=== PATIENT | female | born 1995 | race Caucasian/White ===

== ENCOUNTER 2018-07-04 17:23 | Emergency (ER) | payer BC, SELFPAY ==
[2018-07-04 17:24] VITALS: BP 156/84; PULSE 78; RESP 20; TEMP 36.3; O2SAT 96; BMI 34.0
--- NOTE | 2018-07-04 18:00 | CT_ITS ---
STUDY: CT ABDOMEN AND PELVIS WITHOUT CONTRAST REASON FOR EXAM: Female, 22 years old. Right flank pain RADIATION DOSAGE (If Supplied By Facility): CTDIvol = ( 20.73 ) mGy, DLP = ( 1087.54 ) mGycm TECHNIQUE: Transaxial images were obtained from the dome of the diaphragm to the symphysis pubis without oral contrast, and without intravenous contrast. Sagittal and coronal images were reconstructed. Individualized dose optimization techniques were used for this CT. COMPARISON: None. FINDINGS: The visualized lung bases are unremarkable. The visualized portions of the heart are within normal limits. Normal liver. There are gallstones noted without wall thickening or pericholecystic fluid. Normal spleen. Normal pancreas. Normal bilateral adrenal glands. Normal left kidney. Right kidney shows mild right hydronephrosis and hydroureter. Findings are due to a 2 mm stone noted in the distal right ureter on axial image 156, and coronal recon image 73. Normal visualized stomach. Normal small intestine. Normal colon. The appendix is visualized and appears normal. Appendix best seen on coronal recon image 54 Normal abdominal aorta. Normal inferior vena cava. Normal retroperitoneum. Normal urinary bladder. Normal-appearing uterus, there is a 4 cm right ovarian cyst, and a 2.5 cm left ovarian cyst. Normal abdominal wall. Normal osseous structures. CT/Abdomen/Pelvis without Cont IMPRESSION: 2 mm stone in the distal right ureter causing hydronephrosis and hydroureter. No significant inflammatory stranding noted. Cholelithiasis Ovarian cysts Electronically Signed: Srinivasan Lyons MD at 20:39 EST , Service support ,
[2018-07-04] MEDS: Ketorolac 30 MG/ML Syringe IV (18:21)
[2018-07-04] MEDS: 0.9% Normal Saline 1,000 ML 150 ML IV (18:21)
[2018-07-04] MEDS: Morphine 4 MG/ML Syringe IV (18:21)
[2018-07-04] MEDS: Ondansetron 4 MG/2 ML Vial IV (18:21)
[2018-07-04 18:51] LABS: Anion Gap 9 (5-15); BUN 16 mg/dL (7-18); BUN/Creat Ratio 18.9 RATIO (10-20); Calcium,Total 9.1 mg/dL (8.5-10.1); Chloride 104 mmol/L (98-107); Creatinine, Serum 0.85 mg/dL (0.55-1.02); EST Glomerular Filtration Rate 88 mL/min (>60); Est Glom Filt Rate - Afr Amer 106 mL/min (>60); Estimated Creatinine Clearance 107.57 ml/min; Glucose 115 mg/dL (74-106); Potassium 3.2 mmol/L (3.5-5.1); Sodium Level 139 mmol/L (136-145)
[2018-07-04 18:58] LABS: Absolute Lymphocyte Count 1.26 X10^3/ul (0.83-4.51); Absolute Neutrophil Count 6.9 X10^3/uL (2.0-7.7); Basophil# 0.01 X10^3/uL; Basophil% 0.1 % (0-1); Eosinophil# 0.02 X10^3/uL; Eosinophils% 0.2 % (0-5); Hemoglobin 13.2 g/dl (12.0-15.0); Lymphocyte # 1.26 X10^3/ul (4.0); Lymphocyte % 14.2 % (19-41); Mean Corp Hgb Conc 33.8 g/gl (32-36); Mean Corpuscular Hgb 29.9 pg (27.0-32.0); Mean Corpuscular Volume 88.4 fL (81-99); Mean Platelet Vol. 10.7 fl (6.2-12.0); Monocyte# 0.68 X10^3/uL; Monocyte% 7.7 % (0-10); Neutrophil # 6.87 X10^3/uL (2.7-7.7); Neutrophil % 77.7 % (47-70); POSITIVE COUNT NO; POSITIVE DIFFERENTIAL NO; POSITIVE MORPHOLOGY NO; Platelet Count 209 K/mm3 (150-450); RBC Distribution Width CV 12.1 % (11.6-14.6); Red Blood Count 4.41 M/mm3 (4.2-5.4); White Blood Count 8.9 K/mm3 (4.4-11.0)
[2018-07-04 19:33] LABS: Pregnancy, Serum, hCG Quali. NEGATIVE Negative (0-9 Nonpreg)
[2018-07-04 20:03] VITALS: BP 157/103; PULSE 94; RESP 16; O2SAT 99
[2018-07-04 20:27] LABS: AST(SGOT) 12 U/L (15-37); Alanine Aminotransfer ALT/SGPT 20 U/L (13-56); Albumin, Serum 4.2 g/dL (3.2-5.0); Alkaline Phosphatase 72 U/L (45-117); Globulin 3.7 g/dL (2.2-4.2); Protein, Total 7.9 g/dL (6.4-8.2)
[2018-07-04 20:37] LABS: Bacteria 0 SEEN /hpf (None Seen); Mucous, Urine 0 SEEN /hpf (<or=2+)
--- NOTE | 2018-07-04 21:06 | ED.DCSUM_ITS ---
- ER Visit Summary Date of Service: 07/04/18 Chief Complaint: [Abdominal pain/right flank pain] History of Present Illness: The patient is a 22 F [presents to the emergency department with sudden onset of pain that started about an hour ago. Patient rates her pain a 7 out of 10. Patient had nausea and vomiting with this x3. Patient denies any diarrhea. She denies any blood in her stool or black tarry stool. She denies any urinary symptoms such as urgency, frequency, or hematuria. Patient's not had pain like this before. Patient does not believe that she is . Patient's last menstrual period was 1 week ago.] Physical Examination: [HEENT-PERRLA, EOMI. Cranial nerves II through XII grossly intact. TMs clear. Mucous membranes moist. No adenopathy. Cardiovascular-regular rate and rhythm without murmur or ectopy Lungs-clear to auscultation, chest wall stable without crepitus or subcu emphysema Abdomen-normoactive bowel sounds, soft. Patient does have some minimal tenderness over the right lower quadrant. She has CVA tenderness on the right. Patient has a negative Pop sign. There is no rebound, rigidity, or perineal signs. Extremities-intact ?4, normal range of motion, normal pulses, atraumatic] Test Results: CBC with differential obtained showed a white count of 8.9, hemoglobin 13, hematocrit 39, placed 209. Chemistries unremarkable other than a slightly depressed potassium of 3.2 for which I did give her 40 mEq of potassium chloride p.o. HCG was negative. CT flank obtained showed a 2 mm stone distal right ureter with hydronephrosis and hydroureter. Patient also noted to have cholelithiasis. Urinalysis was unremarkable.] Emergency Department Course and Treatment: [Patient was medicated with Toradol, morphine, and Zofran. Patient's pain resolved.] Treatment Plan: [Patient will be dispensed urine strainers as well as a prescription for Zofran and [place]. Patient will be referred to urology for follow-up.] Disposition: [Discharged home in stable condition] Impression: [Right-urolithiasis Cholelithiasis-asymptomatic] This note was generated with [employer] dictation software. It may contain incorrect words, spelling, and punctuation that were not noted in review of the chart prior to signing ED Disposition - Plan for ED Patient: Chief Complaint: Abd Pain Referrals: Evette Albarado DO [Primary Care Provider] -
--- NOTE | 2018-07-04 21:08 | DCINST.ED_ITS ---
ED Disposition - Plan for ED Patient: Chief Complaint: Abd Pain Instructions: ED Stone Renal W Colic Prescriptions: Hydrocodone Bitart/Apap 5-325 [[place] 5MG-325MG] 1 tab PO Q4H PRN PRN 2 Days #14 tab PRN Reason: Pain Ondansetron [Zofran Odt] 4 mg PO Q8H PRN PRN #10 tab PRN Reason: Nausea Referrals: Evette Albarado DO [Primary Care Provider] - Zachariah Cannon MD [STAFF PHYSICIAN] - As Needed
[2018-07-04 21:18] LABS: Color, Urine Yellow (Yellow); Glucose, Dipstick Normal (Normal); Leukocyte Esterase-Dipstick 25 /ul (Negative); Nitrite-Dipstick Negative (Negative); Occult Blood-Urine 150 /ul (Negative); Protein-Dipstick Negative (Negative); Specific Gravity, Urine 1.015 (1.002-1.030); Urine Bilirubin Dipstick Negative (Negative); Urine Clarity Clear (Clear); Urine Urobilinogen Normal (Normal)
[2018-07-04 21:30] LABS: Ketone-Dipstick 150 mg/dl (Negative)
[2018-07-04 21:32] LABS: Red Blood Cells-Urine 0-5 SEEN /hpf (0-5); Squamous Epithelial Cells - UA 0-5 SEEN /hpf (5-10); White Blood Cells 0-5 SEEN /hpf (0-5)
== END 2018-07-04 21:56 | disposition home or self-care (01) ==
LOC: ED 18:10
PROVIDERS: Emergency Provider Emergency Medicine; Family Provider Internal Medicine; PCP Internal Medicine
DX: N13.2 Hydronephrosis with renal and ureteral calculous obstruction (principal); K80.20 Calculus of gallbladder without cholecystitis without obstruction; E87.6 Hypokalemia; Z79.899 Other long term (current) drug therapy
CPT/HCPCS: 74176; 80048; 80076; 81001; 84703; 85025; 96361; 96374; 96375; 99283; J7030; A4216; J2405

== ENCOUNTER 2018-07-06 07:39 | Emergency (ER) | payer BC, SELFPAY ==
[2018-07-06 07:40] VITALS: BP 144/91; PULSE 66; RESP 18; TEMP 36.1; O2SAT 100; BMI 34.0
[2018-07-06] MEDS: Ondansetron 4 MG/2 ML Vial IV (08:07)
[2018-07-06] MEDS: Ketorolac 30 MG/ML Syringe IV (08:07)
[2018-07-06] MEDS: 0.9% Normal Saline 1,000 ML 999 ML IV (08:07)
[2018-07-06] MEDS: Morphine 4 MG/ML Syringe IV (09:20)
--- NOTE | 2018-07-06 09:38 | ED.DCSUM_ITS ---
- ER Visit Summary Date of Service: 07/06/18 Chief Complaint: Flank pain History of Present Illness: The patient is a 22 F with flank pain for several days. She was seen in this ED and diagnosed with a right side 2 mm kidney stone. She was prescribed Zofran and [place] and referred to urology for follow-up. She presents today for increasing pain and nausea with vomiting. She took her Zofran ODT by mouth and then vomited it up today. No fevers or other new symptoms. Physical Examination: Afebrile and vital signs unremarkable. Right flank tenderness. Abdomen soft. Skin normal. Test Results: None performed Emergency Department Course and Treatment: Patient was treated with IV fluids, Zofran, and Toradol. She did have some improvement of her pain but required additional morphine. On reevaluation, her pain is 3 out of 10. I advised her that she will not be pain-free and that kidney stones can be very painful. She was educated about proper use of Zofran and would like to follow-up with urology. Patient will be discharged. Return for any new or worsening issues. Treatment Plan: As above Disposition: Discharge Impression: 1. Ureteral colic This note was generated with [employer] dictation software. It may contain incorrect words, spelling, and punctuation that were not noted in review of the chart prior to signing ED Disposition - Plan for ED Patient: Chief Complaint: Flank Pain Referrals: Evette Albarado DO [Primary Care Provider] -
--- NOTE | 2018-07-06 09:38 | ED.DEP ---
ED Disposition - Plan for ED Patient: Chief Complaint: Flank Pain Instructions: ED Stone Renal W Colic Referrals: Zachariah Cannon MD [STAFF PHYSICIAN] -
[2018-07-06 09:53] VITALS: BP 117/62; PULSE 76; RESP 15; O2SAT 98
== END 2018-07-06 09:55 | disposition home or self-care (01) ==
LOC: ED 07:57
PROVIDERS: Emergency Provider Emergency Medicine; Family Provider Internal Medicine; PCP Internal Medicine
DX: N20.0 Calculus of kidney (principal)
CPT/HCPCS: 96361; 96374; 96375; 99284; J7030; A4216; J2405

== ENCOUNTER 2018-07-14 12:17 | Day surgery (SDC) | payer BC, SELFPAY ==
[2018-07-14 12:44] VITALS: BP 129/76; PULSE 72; RESP 14; TEMP 37.2; O2SAT 99; BMI 36.2
[2018-07-14 13:07] LABS: Partial Thromboplast Time 29.8 Seconds (24.1-36.2)
[2018-07-14 13:10] LABS: AST(SGOT) 11 U/L (15-37); Alanine Aminotransfer ALT/SGPT 23 U/L (13-56); Albumin, Serum 4.1 g/dL (3.2-5.0); Alkaline Phosphatase 66 U/L (45-117); Bilirubin, Direct 0.14 mg/dL (0.00-0.30); Globulin 3.6 g/dL (2.2-4.2); Protein, Total 7.7 g/dL (6.4-8.2)
[2018-07-14 13:13] LABS: Internal QC Validated? YES +Cl - CLEAR BKGD; Pregnancy, Urine Negative Negative
[2018-07-14] MEDS: Cefazolin 2 GM in 0.9% Normal Saline 100 ML IV (15:48)
--- NOTE | 2018-07-14 16:14 | DCINST_ITS ---
Discharge Diet: Light diet - advance as tolerated Discharge Activity: Return to Normal Activity Call your doctor if you observe: Fever of 101 or Higher Allergies/Adverse Reactions: Allergies No Known Allergies Allergy (Verified 07/13/18 15:09) Medications to take at Discharge Ondansetron [Zofran Odt] 4 mg PO Q8H PRN PRN #10 tab 07/04/18 Oxcarbazepine 300 mg PO DAILY 07/04/18 Quetiapine Fumarate 50 mg PO DAILY 07/04/18 Hydrocodone/Acetaminophen [Hydrocodon-Acetaminophen 5-325] 1 each PO Q6H PRN PRN 07/13/18 Oxcarbazepine [Trileptal] 600 mg PO QHS 07/13/18 Primary Care Physician: Evette Albarado DO [Primary Care Provider] - Test Results: Test results from this visit will be discussed in further detail at your follow- up appointment, if applicable. Please Follow Up With: Zachariah Cannon MD When: in 2 weeks, please call to make an appointment.
--- NOTE | 2018-07-14 16:17 | OP.PCM_ITS ---
Report of Operation Date of Procedure: 07/14/18 Pre-Operative Diagnosis: Right ureteral calculi Post-Operative Diagnosis: The same and scarred down right ureter Surgery/Procedure Performed:: Cystoscopy balloon dilation of the right ureter, right ureteroscopy, and right stent placement Description of Surgical Findings:: 22-year-old female who I saw in the office she had a kidney stone on the right side had a CAT scan done to demonstrate a very small stone in the distal right ureter however she claims that she has not seen a stone yet and that she still having a lot of pain off and on in the right side so because of this we talked about the options of repeating the CAT scan or proceeding with ureteroscopy and extraction of the stone if it still there we decided going to proceed with surgery. 22-year-old female taken back to the operating room at the smooth induction of general anesthesia she was placed supine on the table in the dorsolithotomy position the urethra vaginal area prepped and draped in usual sterile fashion went to the bladder with a 21 Spanish rigid cystourethroscope entire urethra was normal the bladder was normal trigones normal I then went in with a semirigid 7.9 Spanish ureteroscope was able to get in the distal right ureter and then immediately found stenotic scar in the distal right ureter right proximal to the ureteral orifice so because of this and then out took out the ureteroscope I did not try to go to the scar I then went in with a cystoscope up with a wire up the right ureter and then over the wire advanced the balloon dilator and balloon dilated the distal right ureter and after balloon dilating the rest of the ureter left the wire in place next the wire went in with the semirigid ureteroscope was able to get into into the ureter I went up as high as possible and I thought I saw a tiny little fragment I got flicked up into the kidney however decided not to darius it I think there was good be passed on its own the problem was that there was a scar tissue in the distal ureter that is keeping the stone from passing there is been balloon dilated I decided to leave a stent so worked my way down the ureter with the ureteroscope left the wire in place over the wire I advanced a stent 6 Spanish by 24 cm stent left the stent on with a string for extraction plan is to see her back in about 2 weeks to get the stent out this allow the ureter to dilate the stricture to open up and heal open and then she should be able to pass any fragments that are left up in the kidney patient bladder was drained and anesthesia was reversed and she was taken back to PACU good condition. Type of Anesthesia:: General Drains: STENT - Admit VTE Documentation VTE Present on Admission: No VTE Mechan Device Prophylaxis: SCD's
[2018-07-14 16:19] VITALS: BP 129/76; BP 155/86; PULSE 96; RESP 18; TEMP 36.4; O2SAT 96
[2018-07-14 16:30] VITALS: BP 129/76; BP 146/90; PULSE 69; RESP 16; O2SAT 96
[2018-07-14 16:34] VITALS: BP 129/76; BP 138/84; PULSE 71; RESP 16; TEMP 36.8; O2SAT 97
[2018-07-14] MEDS: Acetaminophen 325 MG Tablet 650 MG PO (16:53)
[2018-07-14 18:13] VITALS: BP 128/78; BP 129/76; PULSE 55; RESP 18; TEMP 36.8; O2SAT 99
--- OUTSIDE RECORDS SUMMARY | 2018-09-18 01:38 | XMS RPT_ITS ---
:1995 Author Organization OHIP Care Team Providers Name Role Phone Evette Albarado Primary Care Unavailable Ungur, Remus Attending Unavailable Per Evette Primary Care Unavailable Tomas Lyons Attending Unavailable Zachariah Cannon Attending Unavailable Zachariah Cannon Referring Unavailable Per Evette Primary Care Unavailable Dr. Ortega Gibbs Admitting Unavailable Dr. Ortega Gibbs Attending Unavailable Dr. Loly Mariee Primary Care Unavailable PROBLEMS PROBLEMS DATE TYPE CONDITION / CODE ATTENDING STATUS SOURCE 07/04/2018 Unknown N20.0 - Calculus Ungur, Remus Active [facility] kidney / Community N20.0(ICD-10) Hospital Repository PROCEDURES PROCEDURES No Procedure Records FoundRESULTS RESULTS OPERATIVE REPORT Observed: 07/14/2018 Status: F Source: [place] 4:17 PM [facility] REPOSITORY [facility] Medical Records Department [address] [place] [address] Operative Report 07/14/18 1614 MR#: [id number] Acct: [id number] Name: LUAN PEREZ Rep #: [id number] : 1995 22 From: Zachariah Cannon MD PCP: Evette Albarado DO Status: REG [facility] Location: [place] [address] Report of Operation Date of Procedure: 07/14/18 Pre-Operative Diagnosis: Right ureteral calculi Post-Operative Diagnosis: The same and scarred down right ureter Surgery/Procedure Performed:: Cystoscopy balloon dilation of the right ureter, right ureteroscopy, and right stent placement Description of Surgical Findings:: 22-year-old female who I saw in the office she had a kidney stone on the right side had a CAT scan done to demonstrate a very small stone in the distal right ureter however she claims that she has not seen a stone yet and that she still having a lot of pain off and on in the right side so because of this we talked about the options of repeating the CAT scan or proceeding with ureteroscopy and extraction of the stone if it still there we decided going to proceed with surgery. 22-year-old female taken back to the operating room at the smooth induction of general anesthesia she was placed supine on the table in the dorsolithotomy position the urethra vaginal area prepped and draped in usual sterile fashion went to the bladder with a 21 Mexican rigid cystourethroscope entire urethra was normal the bladder was normal trigones normal I then went in with a semirigid 7.9 Mexican ureteroscope was able to get in the distal right ureter and then immediately found stenotic scar in the distal right ureter right proximal to the ureteral orifice so because of this and then out took out the ureteroscope I did not try to go to the scar I then went in with a cystoscope up with a wire up the right ureter and then over the wire advanced the balloon dilator and balloon dilated the distal right ureter and after balloon dilating the rest of the ureter left the wire in place next the wire went in with the semirigid ureteroscope was able to get into into the ureter I went up as high as possible and I thought I saw a tiny little fragment I got flicked up into the kidney however decided not to darius it I think there was good be passed on its own the problem was that there was a scar tissue in the distal ureter that is keeping the stone from passing there is been balloon dilated I decided to leave a stent so worked my way down the ureter with the ureteroscope left the wire in place over the wire I advanced a stent 6 Mexican by 24 cm stent left the stent on with a string for extraction plan is to see her back in about 2 weeks to get the stent out this allow the ureter to dilate the stricture to open up and heal open and then she should be able to pass any fragments that are left up in the kidney patient bladder was drained and anesthesia was reversed and she was taken back to PACU good condition. Type of Anesthesia:: General Drains: STENT - Admit VTE Documentation VTE Present on Admission: No VTE Mechan Device Prophylaxis: SCD's 07/14/187 <Electronically signed by Zachariah Cannon MD> Date Zachariah Cannon MD CC: Zachariah Cannon MD; Evette Albarado DO Signed DISCHARGE INSTRUCTION Observed: 07/14/2018 Status: F Source: [place] 4:14 PM [facility] REPOSITORY [facility] Medical Records Department [address] [place] [address] Instructions for Home/Discharge Instructions 07/14/18 1613 MR#: [id number] Acct: [id number] Name: LUAN PEREZ Rep #: [id number] : 1995 22 From: Zachariah Cannon MD PCP: Evette Albarado DO Status: REG [facility] Dis[facility] Diet: Light diet - advance as tolerated Discharge Activity: Return to Normal Activity Call your doctor if you observe: Fever of 101 or Higher Allergies/Adverse Reactions: Allergies No Known Allergies Allergy (Verified 07/13/18 15:09) Medications to take at Discharge Ondansetron [Zofran Odt] 4 mg PO Q8H PRN PRN #10 tab 07/04/18 Oxcarbazepine 300 mg PO DAILY 07/04/18 Quetiapine Fumarate 50 mg PO DAILY 07/04/18 Hydrocodone/Acetaminophen [Hydrocodon-Acetaminophen 5-325] 1 each PO Q6H PRN PRN 07/13/18 Oxcarbazepine [Trileptal] 600 mg PO QHS 07/13/18 Primary Care Physician: Evette Albarado DO [Primary Care Provider] - Test Results: Test results from this visit will be discussed in further detail at your follow-up appointment, if applicable. Please Follow Up With: Zachariah Cannon MD When: in 2 weeks, please call to make an appointment. 07/14/18 1614 <Electronically signed by Zachariah Cannon MD> Date Zachariah Cannon MD CC: Evette Albarado DO Signed ,URINE Collected: 07/14/2018 Status: F Source: [place] 1:07 PM [facility] REPOSITORY Order Comment: Reason for Laboratory Test PREOP TYPE CODE TESTS RESULT OUT OF REFERENCE UNITS RANGE LAB L400.8000 Negative Normal HCGUQUAL Negative Result Comment: Very dilute urine specimens, as indicated by a low specific gravity, may not contain insurance follow up representative levels of hCG. If is still suspected, a first morning urine specimen should be collected 48 hours later and tested. Performed By: #### L400.7600 #### [facility] [place], [address] LIVER PROFILE Collected: 07/14/2018 Status: F Source: [place] 12:30 PM [facility] REPOSITORY TYPE CODE TESTS RESULT OUT OF RANGE REFERENCE UNITS LAB L501.1500 6.4-8.2 g/dL Normal T PROT 7.7 LAB L501.1800 3.2-5.0 g/dL Normal ALB 4.1 LAB L501.1950 2.2-4.2 g/dL Normal GLOB 3.6 LAB L501.4100 15-37 U/L Low AST 11 LAB L501.4305 45-117 U/L Normal ALK P 66 LAB L501.4405 13-56 U/L Normal ALT 23 LAB L501.4600 0.20-1.00 mg/dL Normal T BILI 0.40 LAB L501.4700 0.00-0.30 mg/dL Normal D BILI 0.14 Performed By: #### L500.3400, L300.4310 #### [facility] [address] [place], [address] PARTIAL THROMBOPLAST Collected: 07/14/2018 Status: F Source: [place] TIME 12:30 PM [facility] REPOSITORY TYPE CODE TESTS RESULT OUT OF RANGE REFERENCE UNITS LAB L300.4310 24.1-36.2 Seconds Normal PTT 29.8 Performed By: #### L500.3400, L300.4310 #### [facility] [address] [facility] [place], [address] DISCHARGE INSTRUCTION Observed: 07/06/2018 Status: F Source: [place] 4:15 PM [facility] REPOSITORY [facility] Medical Records Department [address] [place] [address] Discharge Instruction 07/06/18 0938 MR#: [id number] Acct: [id number] Name: LUAN PEREZ Rep #: [id number] : 1995 22 From: Tomas Lyons MD PCP: Evette Albarado DO Status: DEP ER ED Disposition - Plan for ED Patient: Chief Complaint: Flank Pain Instructions: ED Stone Renal W Colic Referrals: Zachariah Cannon MD [STAFF PHYSICIAN] - What to do if you have Problems For any increased pain, shortness of breath, bleeding, nausea or vomiting, chest pain, or any unexpected problems, contact your Primary Care Provider. Call [facility] ([phone]) or report to the closest Emergency Room. Call 911 if necessary. 07/06/18 3190 <Electronically signed by Tomas Lyons MD> Date Tomas Lyons MD Cosigner Signature (If Indicated): Date CC: Evette Albarado DO EMERGENCY DEPARTMENT Observed: 07/06/2018 Status: F Source: [place] SUMMARY 4:15 PM [facility] REPOSITORY [facility] Medical Records Department [address] [place] [address] Emergency Department Summary 07/06/18 0935 MR#: [id number] Acct: [id number] Name: LUAN PEREZ Rep #: [id number] : 1995 22 From: Tomas Lyons MD PCP: Evette Albarado DO Status: DEP ER - ER Visit Summary Date of Service: 07/06/18 Chief Complaint: Flank pain History of Present Illness: The patient is a 22 F with flank pain for several days. She was seen in this ED and diagnosed with a right side 2 mm kidney stone. She was prescribed Zofran and [place] and referred to urology for follow-up. She presents today for increasing pain and nausea with vomiting. She took her Zofran ODT by mouth and then vomited it up today. No fevers or other new symptoms. Physical Examination: Afebrile and vital signs unremarkable. Right flank tenderness. Abdomen soft. Skin normal. Test Results: None performed Emergency Department Course and Treatment: Patient was treated with IV fluids, Zofran, and Toradol. She did have some improvement of her pain but required additional morphine. On reevaluation, her pain is 3 out of 10. I advised her that she will not be pain-free and that kidney stones can be very painful. She was educated about proper use of Zofran and would like to follow-up with urology. Patient will be discharged. Return for any new or worsening issues. Treatment Plan: As above Disposition: Discharge Impression: 1. Ureteral colic This note was generated with letsmote.comation software. It may contain incorrect words, spelling, and punctuation that were not noted in review of the chart prior to signing ED Disposition - Plan for ED Patient: Chief Complaint: Flank Pain Referrals: Evette Albarado DO [Primary Care Provider] - What to do if you have Problems For any increased pain, shortness of breath, bleeding, nausea or vomiting, chest pain, or any unexpected problems, contact your Primary Care Provider. Call [facility] ([phone]) or report to the closest Emergency Room. Call 911 if necessary. 07/06/18 1615 <Electronically signed by Tomas Lyons MD> Date Tomas Lyons MD Cosigner Signature (If Indicated): Date CC: Evette Albarado DO DISCHARGE INSTRUCTION Observed: 07/04/2018 Status: F Source: [place] 9:08 PM [facility] REPOSITORY [facility] Medical Records Department [address] [place] [address] Discharge Instruction 07/04/182106 MR#: [id number] Acct: [id number] Name: LUAN PEREZ Rep #: [id number] : 1995 22 From: Paul Tilley DO PCP: Evette Albarado DO Status: REG ER ED Disposition - Plan for ED Patient: Chief Complaint: Abd Pain Instructions: ED Stone Renal W Colic Prescriptions: Hydrocodone Bitart/Apap 5-325 [Houston 5MG-325MG] 1 tab PO Q4H PRN PRN 2 Days #14 tab PRN Reason: Pain Ondansetron [Zofran Odt] 4 mg PO Q8H PRN PRN #10 tab PRN Reason: Nausea Referrals: Evette Albarado DO [Primary Care Provider] - Zachariah Cannon MD [STAFF PHYSICIAN] - As Needed What to do if you have Problems For any increased pain, shortness of breath, bleeding, nausea or vomiting, chest pain, or any unexpected problems, contact your Primary Care Provider. Call [facility] ([phone]) or report to the closest Emergency Room. Call 911 if necessary. 07/04/182107 <Electronically signed by Paul Tilley DO> Date Paul Tilley DO Cosigner Signature (If Indicated): Date CC: Evette Albarado DO EMERGENCY DEPARTMENT Observed: 07/04/2018 Status: F Source: [place] SUMMARY 9:06 PM [facility] REPOSITORY [facility] Medical Records Department [address] [place] [address] Emergency Department Summary 07/04/182102 MR#: [id number] Acct: [id number] Name: LUAN PEREZ Rep #: [id number] : 1995 22 From: Paul Tilley DO PCP: Evette Albarado DO Status: REG ER - ER Visit Summary Date of Service: 07/04/18 Chief Complaint: [Abdominal pain/right flank pain] History of Present Illness: The patient is a 22 F [presents to the emergency department with sudden onset of pain that started about an hour ago. Patient rates her pain a 7 out of 10. Patient had nausea and vomiting with this x3. Patient denies any diarrhea. She denies any blood in her stool or black tarry stool. She denies any urinary symptoms such as urgency, frequency, or hematuria. Patient's not had pain like this before. Patient does not believe that she is . Patient's last menstrual period was 1 week ago.] Physical Examination: [HEENT-PERRLA, EOMI. Cranial nerves II through XII grossly intact. TMs clear. Mucous membranes moist. No adenopathy. Cardiovascular-regular rate and rhythm without murmur or ectopy Lungs-clear to auscultation, chest wall stable without crepitus or subcu emphysema Abdomen-normoactive bowel sounds, soft. Patient does have some minimal tenderness over the right lower quadrant. She has CVA tenderness on the right. Patient has a negative Pop sign. There is no rebound, rigidity, or perineal signs. Extremities-intact 4, normal range of motion, normal pulses, atraumatic] Test Results: CBC with differential obtained showed a white count of 8.9, hemoglobin 13, hematocrit 39, placed 209. Chemistries unremarkable other than a slightly depressed potassium of 3.2 for which I did give her 40 mEq of potassium chloride p.o. HCG was negative. CT flank obtained showed a 2 mm stone distal right ureter with hydronephrosis and hydroureter. Patient also noted to have cholelithiasis. Urinalysis was unremarkable.] Emergency Department Course and Treatment: [Patient was medicated with Toradol, morphine, and Zofran. Patient's pain resolved.] Treatment Plan: [Patient will be dispensed urine strainers as well as a prescription for Zofran and [place]. Patient will be referred to urology for follow-up.] Disposition: [Discharged home in stable condition] Impression: [Right-urolithiasis Cholelithiasis-asymptomatic] This note was generated with Pro.com dictation software. It may contain incorrect words, spelling, and punctuation that were not noted in review of the chart prior to signing ED Disposition - Plan for ED Patient: Chief Complaint: Abd Pain Referrals: Evette Albarado DO [Primary Care Provider] - What to do if you have Problems For any increased pain, shortness of breath, bleeding, nausea or vomiting, chest pain, or any unexpected problems, contact your Primary Care Provider. Call [facility] ([phone]) or report to the closest Emergency Room. Call 911 if necessary. 07/04/18 6277 <Electronically signed by Paul Tilley DO> Date Paul Tilley DO Cosigner Signature (If Indicated): Date CC: Evette Albarado DO URINALYSIS, COMPLETE Collected: 07/04/2018 Status: F Source[facility] [place] [facility] Order Comment: Order Date: 07/04/18 How was Urine Obtained? CLEAN CATCH TYPE CODE TESTS RESULT OUT OF RANGE REFERENCE UNITS LAB L400.3000 Yellow COLOR Normal Yellow LAB L400.3050 Clear Normal CLARITY Clear LAB L400.3200 Normal mg/dl Normal GLUCOSE, UR Normal LAB L400.3300 Negative mg/dL Normal BILIRUBIN URINE Negative LAB L400.3400 Negative mg/dl High KETONE UR 150 Result Comment: CRITICAL VALUE *H CRITICAL VALUE VERIFIED. CALLED TO DR CHOI 07/04/18 4353 Stephanie Alamo. RESULTS READ BACK BY SAME . LAB L400.3465 1.002-1.030 Normal SP.GR. DIPSTX 1.015 LAB L400.3550 5.0 - 8.0 pH Normal UR 6.0 LAB L400.3600 Negative mg/dl Normal PROT DIPSTX Negative LAB L400.3700 Normal mg/dl Normal UROBILI Normal LAB L400.3750 Negative Normal NITRITE UR Negative LAB L400.3780 Negative /ul High OCCULT 150 BLOOD-UR LAB L400.3800 Negative /ul High 25 LEUK ESTERASE LAB L400.4050 0-5 /hpf Normal WBC 0-5 SEEN LAB L400.4100 0-5 /hpf Normal RBC-UA 0-5 SEEN LAB L400.4150 5-10 /hpf Normal SQUAM EPI 0-5 SEEN LAB L400.4300 None Seen /hpf 0 Normal BACTERIA SEEN LAB L400.4350 <or=2+ /hpf 0 Normal MUCUS, URINE SEEN Performed By: #### L400.0001 #### [facility] [address] [place], [place], [address] BASIC METABOLIC Collected: 07/04/2018 Status: F Source: [place] PROFILE (BMP) 6:20 PM [facility] REPOSITORY TYPE CODE TESTS RESULT OUT OF RANGE REFERENCE UNITS LAB L501.0100 74-106 mg/dL High GLU 115 Result Comment: Fasting Glucose result from 100 to 125 mg/dL suggests IMPAIRED HOMEOSTASIS per A.D.A. criteria. Please note revised GLUCOSE reference range effective 2017. LAB L501.1000 7-18 mg/dL Normal BUN 16 LAB L501.1100 0.55-1.02 mg/dL Normal CREAT,SERUM 0.85 Result Comment: The validity of the calculated GFR AND GFRAA in patients over 70 years has not been determined. Clinical correlation is essential. LAB L501.1110 >60 mL/min Normal EST GFR 88 Result Comment: Non- GFR Calc LAB L501.1115 >60 mL/min Normal EST GFR - AA 106 Result Comment: GFR Calc LAB L501.1255 ml/min Normal Estimated CRCL 107.57 LAB L501.1300 10-20 RATIO BUN/CRE Normal 18.9 LAB L501.2200 8.5-10 mg/dL .1 CA Normal 9.1 LAB L501.5300 136-14 mmol/L 5 NA Normal 139 LAB L501.5600 3.5-5. mmol/L Low 1 K 3.2 LAB L501.5900 98-107 mmol/L CL Normal 104 LAB L501.6100 21.0-3 mmol/L 2.0 CO2 Normal 26.0 LAB L501.6200 5-15 GAP Normal 9 Performed By: #### L500.2500 #### [facility] [address] [place], [address] CBC W/DIFF, AUTOMATED Collected: 07/04/2018 Status: F Source: [place] 6:20 PM [facility] REPOSITORY TYPE CODE TESTS RESULT OUT OF RANGE REFERENCE UNITS LAB L100.1000 4.4-11.0 K/mm3 Normal WBC 8.9 LAB L100.1200 4.2-5.4 M/mm3 Normal RBC 4.41 LAB L100.1300 12.0-15.0 g/dl Normal HGB 13.2 LAB L100.1400 37-47 % Normal HCT 39.0 LAB L100.1500 81-99 fL Normal MCV 88.4 LAB L100.1600 27.0-32.0 pg Normal MCH 29.9 LAB L100.1700 32-36 g/gl Normal MCHC 33.8 LAB L100.1810 11.6-14.6 % Normal RDW CV 12.1 LAB L100.1820 35.1-43.9 fl Normal RDW SD 39.0 LAB L100.1900 150-450 K/mm3 Normal PLT 209 LAB L100.2000 6.2-12.0 fl Normal MPV 10.7 LAB L100.2100 47-70 % High NEUT% 77.7 LAB L100.2200 19-41 % Low LY% 14.2 LAB L100.2300 0-10 % Normal MONO% 7.7 LAB L100.2400 0-5 % Normal EO% 0.2 LAB L100.2500 0-1 % Normal BASO% 0.1 LAB L100.2550 0.0-0.9 % Normal IM GRAN % 0.100 Result Comment: IG% - Immature Granulocytes (promyelocytes, myelocytes and metamyelocytes) > 1% indicates that a LEFT SHIFT is Present. LAB L100.2620 2.0-7.7 X10 3/uL Normal Absolute Neut 6.9 LAB L100.2720 0.83-4.51 X10 3/ul Normal Absolute Lymph 1.26 Performed By: #### L100.0100 #### [facility] [address] [facility] [place], [place], [address] ,SERUM,HCG QUALI. Collected: Status: F Source: [place] 07/04/2018 6:20 PM [facility] REPOSITORY TYPE CODE TESTS RESULT OUT OF REFERENCE UNITS RANGE LAB L700.6700 =>Qualitative mIU/mL Normal HCG Qual < 1 triggr LAB L700.7000 0-9 Nonpreg Negative Normal HCGSQUAL NEGATIVE Performed By: #### L700.6800 #### [facility] [address] [facility]. [place], [place], [address] LIVER PROFILE Collected: 07/04/2018 Status: F Source: [place] 6:20 PM [facility] REPOSITORY TYPE CODE TESTS RESULT OUT OF RANGE REFERENCE UNITS LAB L501.1500 6.4-8.2 g/dL Normal T PROT 7.9 LAB L501.1800 3.2-5.0 g/dL Normal ALB 4.2 LAB L501.1950 2.2-4.2 g/dL Normal GLOB 3.7 LAB L501.4100 15-37 U/L Low AST 12 LAB L501.4305 45-117 U/L Normal ALK P 72 LAB L501.4405 13-56 U/L Normal ALT 20 LAB L501.4600 0.20-1.00 mg/dL Normal T BILI 0.30 LAB L501.4700 0.00-0.30 mg/dL Normal D BILI 0.10 Performed By: #### L500.3400 #### [facility] [address] [place], [address] ABDOMEN/PELVIS WITHOUT Observed: 07/04/2018 Status: F Source: [place] CONT 6:01 PM [facility] REPOSITORY [facility] Imaging Services [address] [place] [address] Abdomen/Pelvis without Cont MR#: [id number] Acct: [id number] Name: LUAN PEREZ Rep #: [id number] : 1995 F 22 From: Inocente Lyons MD PCP: Evette Albarado DO Status: REG ER Study: Abdomen/Pelvis without Cont Date of Exam: 07/04/18 Exam# [id number] Ordering Dr: Paul Tilley DO STUDY: CT ABDOMEN AND PELVIS WITHOUT CONTRAST REASON FOR EXAM: Female, 22 years old. Right flank pain RADIATION DOSAGE (If Supplied By Facility): CTDIvol = ( 20.73 ) mGy, DLP = ( 1087.54 ) mGycm TECHNIQUE: Transaxial images were obtained from the dome of the diaphragm to the symphysis pubis without oral contrast, and without intravenous contrast. Sagittal and coronal images were reconstructed. Individualized dose optimization techniques were used for this CT. COMPARISON: None. FINDINGS: The visualized lung bases are unremarkable. The visualized portions of the heart are within normal limits. Normal liver. There are gallstones noted without wall thickening or pericholecystic fluid. Normal spleen. Normal pancreas. Normal bilateral adrenal glands. Normal left kidney. Right kidney shows mild right hydronephrosis and hydroureter. Findings are due to a 2 mm stone noted in the distal right ureter on axial image 156, and coronal recon image 73. Normal visualized stomach. Normal small intestine. Normal colon. The appendix is visualized and appears normal. Appendix best seen on coronal recon image 54 Normal abdominal aorta. Normal inferior vena cava. Normal retroperitoneum. Normal urinary bladder. Normal-appearing uterus, there is a 4 cm right ovarian cyst, and a 2.5 cm left ovarian cyst. Normal abdominal wall. Normal osseous structures. CT/Abdomen/Pelvis without Cont IMPRESSION: 2 mm stone in the distal right ureter causing hydronephrosis and hydroureter. No significant inflammatory stranding noted. Cholelithiasis Ovarian cysts Electronically Signed: Srinivasan Lyons MD at 20:39 EST , Service support , CC: Evette Albarado DO; Paul Tillye DO [employer]: Signed ALLERGIES ALLERGIES DATE TYPE / CODE NAME / CODE REACTION SEVERITY SOURCE 07/13/2018 Drug No Known Unknown [facility] Allergy/4160 Allergies/F00 [facility] [address]286(SNOMED [id number](RXNOR Repository CT) M) ENCOUNTERS ENCOUNTERS ADMIT/DISCHARGE ACCOUNT ADMITTING ENCOUNTER LOCATION SOURCE NUMBER CLASS 07/14/2018/07/14/19 [id number] Ambulatory [address] ding:SDCRoom Repository : AC14 07/06/2018/07/06/19 [id number] Emergency [address] ding:ED Repository 07/04/2018/07/04/19 [id number] Emergency [address] ding:ED Repository 12/19/[id number] Bernie [address] Repository PAYERS PAYERS ENCOUNTER GUARANTOR PAYER SUBSCRIBER SOURCE 07/14/2018 LUAN A Primary LUAN A [place] [id number] Insurance:ANTHEMPolic HITESDOB: [facility] Number: [id number] Repository [address]Wfz: (330) Date:3156-66-33CT [phone] () [place], [place] [address]XG: 07/14/2018 Secondary NOT GIVENUNK [place] Insurance:SELF PAY [facility] Number: Effective Repository Date:2018-07-11 07/06/2018 LUAN A Primary LUAN A [place] [id number] Insurance:ANTHEMPolic HITESDOB: [facility] y [place]: [id number] [id number] Repository [address]Kbs: ([phone]) Date:2820-88-27[phone] () [address], [place] [address]OM: 07/06/2018 Secondary NOT GIVENUNK [place] Insurance:SELF PAY [facility] Number: Effective Repository Date:2018-07-06 07/04/2018 LUAN A Primary LUAN A [place] [id number] Insurance:ANTHEMPolic HITESDOB: [facility] y Number: [id number] [id number] Repository [address]Mre: ([phone]) Date:9909-69-03TZ [phone] () [place], [place] [address]HW: 07/04/2018 Secondary NOT GIVENUNK [place] Insurance:SELF PAY [facility] Number: Effective Repository Date:2018-07-04
== END 2018-07-14 18:14 | disposition home or self-care (01) ==
LOC: SDC 12:17 → AC 12:19
PROVIDERS: Anesthesiology; Family Provider Internal Medicine; PCP Internal Medicine; Referring Provider Urology; Visit Provider Urology
PROC: 0TJ98ZZ Inspection of Ureter, Via Natural or Artificial Opening Endoscopic (ICD-10-PCS; CPT 52352; principal; 2018-07-14 14:15)
DX: N20.1 Calculus of ureter (principal); F32.9 Major depressive disorder, single episode, unspecified; K21.9 Gastro-esophageal reflux disease without esophagitis; Z79.891 Long term (current) use of opiate analgesic; Z79.899 Other long term (current) drug therapy
CPT/HCPCS: 00910; 52282; 52344; 36415; 80076; 81025; 85730; J7120; C1769; C2617; J2405

== ENCOUNTER → 2018-08-22 15:31 | Outpatient (CLI) | payer BC, SELFPAY ==
[2018-08-22 16:35] LABS: Absolute Lymphocyte Count 2.09 X10^3/ul (0.83-4.51); Absolute Neutrophil Count 4.8 X10^3/uL (2.0-7.7); Basophil# 0.02 X10^3/uL; Basophil% 0.3 % (0-1); Eosinophil# 0.09 X10^3/uL; Eosinophils% 1.2 % (0-5); Hematocrit 41.2 % (37-47); Hemoglobin 13.7 g/dl (12.0-15.0); Lymphocyte # 2.09 X10^3/ul (4.0); Lymphocyte % 26.8 % (19-41); Mean Corp Hgb Conc 33.3 g/gl (32-36); Mean Corpuscular Hgb 30.5 pg (27.0-32.0); Mean Corpuscular Volume 91.8 fL (81-99); Mean Platelet Vol. 10.6 fl (6.2-12.0); Monocyte% 10.3 % (0-10); Neutrophil # 4.78 X10^3/uL (2.7-7.7); Neutrophil % 61.3 % (47-70); Platelet Count 224 K/mm3 (150-450); RBC Distribution Width CV 12.3 % (11.6-14.6); RBC Distribution Width SD 40.4 fl (35.1-43.9); Red Blood Count 4.49 M/mm3 (4.2-5.4); White Blood Count 7.8 K/mm3 (4.4-11.0)
[2018-08-22 16:36] LABS: POSITIVE COUNT NO; POSITIVE DIFFERENTIAL NO; POSITIVE MORPHOLOGY NO
[2018-08-22 16:57] LABS: Vitamin B12 337 pg/mL (211-911); Vitamin D,25 Hydroxy 16.2 ng/mL (29.95-100.01)
[2018-08-22 17:05] LABS: Anion Gap 10 (5-15); BUN 17 mg/dL (7-18); BUN/Creat Ratio 19.3 RATIO (10-20); Chloride 102 mmol/L (98-107); Creatinine, Serum 0.88 mg/dL (0.55-1.02); EST Glomerular Filtration Rate 84 mL/min (>60); Est Glom Filt Rate - Afr Amer 101 mL/min (>60); Glucose 95 mg/dL (74-106); Potassium 3.7 mmol/L (3.5-5.1); Sodium Level 141 mmol/L (136-145); Thyroid Stim Hormone (TSH) 1.92 uIU/mL (0.358-3.74)
[2018-08-27 10:08] LABS: Trileptal-Oxcarbazepine 7 ug/mL (10-35)
== END ==
PROVIDERS: Family Provider Internal Medicine; PCP Internal Medicine
DX: F31.9 Bipolar disorder, unspecified (principal)
CPT/HCPCS: 36415; 80048; 82306; 82542; 82607; 82746; 84443; 85025

== ENCOUNTER 2020-05-31 14:05 | Inpatient (IN) | payer MEDICAID, SELFPAY ==
[2020-05-31] VITALS (42 sets, daily range): BP systolic 86–141; BP diastolic 50–84; PULSE 63–110; TEMP 36.3–37.7; O2SAT 93–100; BMI 39.4
[2020-05-31] MEDS: Ondansetron 4 MG/2 ML Vial IV ×3 (11:00→20:47)
[2020-05-31 11:01] LABS: Absolute Lymphocyte Count 0.98 X10^3/uL (0.83-4.51); Absolute Neutrophil Count 9.5 X10^3/uL (2.0-7.7); Basophil# 0.02 X10^3/uL; Basophil% 0.2 % (0-1); Eosinophil# 0.01 X10^3/uL; Eosinophils% 0.1 % (0-5); Hematocrit 42.3 % (37-47); Hemoglobin 14.3 g/dL (12.0-15.0); Lymphocyte # 0.98 X10^3/ul (4.0); Lymphocyte % 8.7 % (19-41); Mean Corp Hgb Conc 33.8 g/dL (32-36); Mean Corpuscular Hgb 30.4 pg (27.0-32.0); Mean Platelet Vol. 10.9 fl (6.2-12.0); Monocyte# 0.66 X10^3/uL; Monocyte% 5.9 % (0-10); NRBC Flagged by Analyzer 0 % (0-5); Neutrophil # 9.51 X10^3/uL (2.7-7.7); Neutrophil % 84.7 % (47-70); Platelet Count 204 K/mm3 (150-450); RBC Distribution Width CV 11.9 % (11.6-14.6); RBC Distribution Width SD 39.7 fl (35.1-43.9); White Blood Count 11.2 K/mm3 (4.4-11.0)
[2020-05-31] MEDS: Lactated Ringers 1,000 ML 500 ML IV (11:01)
[2020-05-31] MEDS: HYDROmorphone 1 MG/ML Syringe IV (11:02)
--- NOTE | 2020-05-31 11:19 | US_ITS ---
STUDY: RENAL ULTRASOUND - COMPLETE REASON FOR EXAM: Female, 24 years old. RT FLANK PAIN - 39 WEEKS PREG TECHNIQUE: Ultrasound evaluation of the kidneys was performed with real-time and static kellogg-scale imaging. COMPARISON: None. FINDINGS: RIGHT KIDNEY: Normal location of the right kidney, which is normal in size. The right kidney measures 13.5 cm. There is a normal cortex of the right kidney. The renal cortex measures 2.4 cm. There is no right renal mass or cyst. There are no right renal calculi. Mild hydronephrosis of . DISTAL RIGHT URETER: There is non-visualization of the distal right ureter. There is no demonstrated right ureterovesical junction calculus. There is a visualized right ureteral jet. LEFT KIDNEY: Normal location of the left kidney, which is normal in size. The left kidney measures 11.5 cm. There is a normal cortex of the left kidney. The renal cortex measures 1.5 cm. There is no left renal mass or cyst. There are no left renal calculi. There is no left hydronephrosis. DISTAL LEFT URETER: There is non-visualization of the distal left ureter. There is no demonstrated left ureterovesical junction calculus. There is a visualized left ureteral jet. i. US/Kidney and Bladder IMPRESSION: Normal ultrasound of the kidneys. Mild right hydronephrosis of . Electronically Signed: Pradeep Madrid MD at 12:05 EST Tel , Service support ,
[2020-05-31 11:33] LABS: ALB/GLOB Ratio 0.6 RATIO (0.9-2.4); AST(SGOT) 18 U/L (15-37); Alanine Aminotransfer ALT/SGPT 17 U/L (13-56); Albumin, Serum 2.8 g/dL (3.2-5.0); Alkaline Phosphatase 117 U/L (45-117); Anion Gap 9 (5-15); BUN 13 mg/dL (7-18); BUN/Creat Ratio 16.4 RATIO (10-20); Calcium,Total 9.4 mg/dL (8.5-10.1); Chloride 106 mmol/L (98-107); Creatinine, Serum 0.79 mg/dL (0.55-1.02); EST Glomerular Filtration Rate 94 mL/min (>60); Est Glom Filt Rate - Afr Amer 113 mL/min (>60); Estimated Creatinine Clearance 113.77 ml/min; Globulin 4.5 g/dL (2.2-4.2); Glucose 92 mg/dL (74-106); Potassium 3.9 mmol/L (3.5-5.1); Protein, Total 7.3 g/dL (6.4-8.2); Sodium Level 137 mmol/L (136-145)
--- NOTE | 2020-05-31 11:35 | OB.TRI.PN ---
Progress Notes Date of Service: 05/31/20 Laboratory Studies: Laboratory Tests 05/31/20 05/31/20 Range/Units 10:45 10:45 WBC 11.2 H (4.4-11.0) K/mm3 RBC 4.70 (4.2-5.4) M/mm3 Hgb 14.3 (12.0-15.0) g/dL Hct 42.3 (37-47) % MCV 90.0 (81-99) fL MCH 30.4 (27.0-32.0) pg MCHC 33.8 (32-36) g/dL RDW Std Deviation 39.7 (35.1-43.9) fl RDW Coeff of Gene 11.9 (11.6-14.6) % Plt Count 204 (150-450) K/mm3 MPV 10.9 (6.2-12.0) fl Immature Gran % (Auto) 0.400 (0.0-0.9) % Neut % (Auto) 84.7 H (47-70) % Lymph % (Auto) 8.7 L (19-41) % [place] % (Auto) 5.9 (0-10) % Eos % (Auto) 0.1 (0-5) % Baso % (Auto) 0.2 (0-1) % Absolute Neuts (auto) 9.5 H (2.0-7.7) X10^3/uL Absolute Lymphs (auto) 0.98 (0.83-4.51) X10^3/uL Nucleated RBC % 0 (0-5) % Sodium 137 (136-145) mmol/L Potassium 3.9 (3.5-5.1) mmol/L Chloride 106 (98-107) mmol/L Carbon Dioxide 22.0 (21.0-32.0) mmol/L Anion Gap 9 (5-15) BUN 13 (7-18) mg/dL Creatinine 0.79 (0.55-1.02) mg/dL Estim Creat Clear Calc 113.77 ml/min Est GFR (MDRD) Af Amer 113 (>60) mL/min Est GFR (MDRD) Non-Af 94 (>60) mL/min BUN/Creatinine Ratio 16.4 (10-20) RATIO Glucose 92 (74-106) mg/dL Calcium 9.4 (8.5-10.1) mg/dL Total Bilirubin 0.20 (0.20-1.00) mg/dL AST 18 (15-37) U/L ALT 17 (13-56) U/L Alkaline Phosphatase 117 (45-117) U/L Total Protein 7.3 (6.4-8.2) g/dL Albumin 2.8 L (3.2-5.0) g/dL Globulin 4.5 H (2.2-4.2) g/dL Albumin/Globulin Ratio 0.6 L (0.9-2.4) RATIO
--- NOTE | 2020-05-31 11:44 | OB.TRI.NOTE ---
History of Present Illness Date of Service: 05/31/20 Reason For Visit: Right Flank Pain Date of Service: 05/31/20 Final AMOS: 06/01/20 Final AMOS Source: US <20 weeks Gestational age: 39 Weeks and 6 Days History of Present Illness: presents at 39w6d with complaint of right sided flank pain rating 7/10 and nausea. States urinary urgency and frequency but does not think that it has increased. Denies any vaginal bleeding, leakage of fluid or contractions. Good movement. Has history of kidney stone. Allergies No Known Allergies Allergy (Verified 07/13/18 15:09) Laboratory Studies: Laboratory Tests 05/31/20 05/31/20 Range/Units 10:45 10:45 WBC 11.2 H (4.4-11.0) K/mm3 RBC 4.70 (4.2-5.4) M/mm3 Hgb 14.3 (12.0-15.0) g/dL Hct 42.3 (37-47) % MCV 90.0 (81-99) fL MCH 30.4 (27.0-32.0) pg MCHC 33.8 (32-36) g/dL RDW Std Deviation 39.7 (35.1-43.9) fl RDW Coeff of Gene 11.9 (11.6-14.6) % Plt Count 204 (150-450) K/mm3 MPV 10.9 (6.2-12.0) fl Immature Gran % (Auto) 0.400 (0.0-0.9) % Neut % (Auto) 84.7 H (47-70) % Lymph % (Auto) 8.7 L (19-41) % [place] % (Auto) 5.9 (0-10) % Eos % (Auto) 0.1 (0-5) % Baso % (Auto) 0.2 (0-1) % Absolute Neuts (auto) 9.5 H (2.0-7.7) X10^3/uL Absolute Lymphs (auto) 0.98 (0.83-4.51) X10^3/uL Nucleated RBC % 0 (0-5) % Sodium 137 (136-145) mmol/L Potassium 3.9 (3.5-5.1) mmol/L Chloride 106 (98-107) mmol/L Carbon Dioxide 22.0 (21.0-32.0) mmol/L Anion Gap 9 (5-15) BUN 13 (7-18) mg/dL Creatinine 0.79 (0.55-1.02) mg/dL Estim Creat Clear Calc 113.77 ml/min Est GFR (MDRD) Af Amer 113 (>60) mL/min Est GFR (MDRD) Non-Af 94 (>60) mL/min BUN/Creatinine Ratio 16.4 (10-20) RATIO Glucose 92 (74-106) mg/dL Calcium 9.4 (8.5-10.1) mg/dL Total Bilirubin 0.20 (0.20-1.00) mg/dL AST 18 (15-37) U/L ALT 17 (13-56) U/L Alkaline Phosphatase 117 (45-117) U/L Total Protein 7.3 (6.4-8.2) g/dL Albumin 2.8 L (3.2-5.0) g/dL Globulin 4.5 H (2.2-4.2) g/dL Albumin/Globulin Ratio 0.6 L (0.9-2.4) RATIO Review of Systems Constitutional: Denies: Chills, Fever, Weight Change Eyes: Denies: Blurred vision HEENT: Denies: Head Aches, Sinus Congestion, Sinus Drainage Cardiovascular: Denies: Chest Pain, Palpitations Respiratory: Denies: Cough, Shortness of breath at rest, Sputum production Gastrointestinal: Reports: Nausea, Vomiting, - - Right sided CVAT. Denies: Abdominal Pain, Diarrhea Genitourinary: Reports: Frequency, Urgency - But states she had this previously and does not think it is changed. Denies: Dysuria, Hematuria Musculoskeletal: Denies: Joint Pain, Joint Tenderness Skin: Denies: Rash, Wounds Neurological: Denies: Numbness, Tingling, Focal weakness Psychiatric: Denies: Anxiety, Depression, Homicidal Ideations, Suicidal Ideations Hematologic/ Lymphatic: Denies: Easy Bruising, Easy Bleeding Physical Exam Vitals: Vital Signs Temp Pulse BP Pulse Ox 97.5 F L 76 126/76 H 96 05/31/20 09:54 05/31/20 09:54 05/31/20 09:51 05/31/20 09:54 General: Alert, Oriented x3, Cooperative HEENT: Atraumatic, Normocephalic Cardiovascular: Regular rate, Regular Rhythm, No murmurs Lungs: Clear to auscultation, Normal air movement, No rhonchi, No wheeze Abdomen: Bowel Sounds Present, Soft, Non Tender, Gravid, - - Right CVAT Extremities:: No edema Neurological: Deep Tendon Reflexes 2+/4 and Symmetrical. 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 Dilaudid 1mg IVP for pain 4) Recheck cervical exam to rule out labor 5) Will consult as collaborative physician once results returned.
[2020-05-31] MEDS: oxyCODONE 5 MG Tablet 10 MG PO (12:57)
[2020-05-31] MEDS: proMETHazine 25 MG/ML Syringe 12.5 MG IV (12:57)
[2020-05-31 13:30] LABS: Color, Urine Yellow (Yellow); Glucose, Dipstick Normal (Normal); Ketone-Dipstick 50 mg/dl (Negative); Leukocyte Esterase-Dipstick 25 /ul (Negative); Nitrite-Dipstick Negative (Negative); Occult Blood-Urine 50 /ul (Negative); Protein-Dipstick 30 mg/dl (Negative); Urine Bilirubin Dipstick Negative (Negative); Urine Clarity Sl. Cloudy (Clear); Urine Urobilinogen Normal (Normal); Urine pH 6.5 (5.0 - 8.0)
[2020-05-31 13:41] LABS: Bacteria 2+ /hpf (None Seen); Mucous, Urine 3+ /hpf (<or=2+); Red Blood Cells-Urine 0-5 SEEN /hpf (0-5); Squamous Epithelial Cells - UA 0-5 SEEN /hpf (5-10); White Blood Cells 0-5 SEEN /hpf (0-5)
[2020-05-31] MEDS: Lactated Ringers 1,000 ML 50 ML IV (15:06)
[2020-05-31] MEDS: Lactated Ringers 500 ML 999 ML IV ×3 (15:18→20:47)
[2020-05-31] MEDS: fentaNYL-bupivacaine (epidural) 100 ML BAG EPIDURAL ×2 (16:10→21:30)
[2020-05-31] MEDS: Oxytocin 30 units/NS 500 ml 30 UNITS/500 ML IV.SOLN IV (16:26)
--- NOTE | 2020-05-31 18:40 | CASEMGMT ---
SOCIAL WORK Received call from nursing reporting FOB and MOB request to complete HPOA forms as MOB and FOB are not . Met with MOB and FOB in room. Discussed Advanced Directives. MOB wishes to name Manjeet PEÑA as HPOA. Forms completed and witnessed by this worker and nurse. Copy of HPOA added to chart. Original given to MOB. Wes Pittman, CONSTRUCTION TRENCH DIGGER, FIELD MECHANIC/SITE LEAD
--- NOTE | 2020-05-31 19:01 | HP.PCM_ITS ---
- Problem List (1) Encounter for induction of labor Status: Acute (2) Prolonged heart deceleration Status: Acute (3) History of kidney stones Status: Acute (4) Abnormal glucose affecting Status: Acute (5) Anxiety during Status: Acute History Date of Admission: 05/31/20 Final AMOS: 06/01/20 Final AMOS Source: US <20 weeks Gestational age: 39 Weeks and 6 Days History of this : This is a 24 year-old, G [1], P [0], at 39 weeks 6 days gestational age.Presented for right sided flank pain and nausea. Evaluation for kidney stone. During triage prolonged deceleration with no contractions. Decision for induction of labor at term. Allergies No Known Allergies Allergy (Verified 07/13/18 15:09) Home Medications: Home Medications Famotidine [Pepcid] 20 mg PO DAILY 05/31/20 Ondansetron [Zofran Odt] 4 mg PO Q8H PRN PRN #20 tab NS 05/31/20 Oxycodone [Oxyir] 10 mg PO Q6H PRN PRN 2 Days #10 tab 05/31/20 Vits [Prenatabs FA] 1 tab PO DAILY 05/31/20 Smoking Status: Never smoker Alcohol: None Number of Fetus(es): 1 NST - FHR Rate Baby A Baseline: 160 Variability:: Moderate Decelerations:: Variable NST Reactive:: Yes FHR Category:: Category II Uterine Activity:: Irregular, mild History Past Pregnancies: Past Pregnancies Delivery Date Name GA/ Weeks Outcome Route Wt Sex Labor Length Anesthesia Delivery Location Provider FOB Labs: Mom's Current Diagnoses Calculus of kidney 05/31/20 Mom's Microbiology 05/31/20 14:40 Mucosa - Nose SARS-CoV-2 Antigen (Rapid) - Final 05/31/20 11:10 Urine, Clean Catch Urine Culture - Pending Mom's Problem List Problem Status Onset Code Encounter for induction of labor Acute Z34.90 Prolonged heart deceleration Acute History of kidney stones Acute Z87.442 Abnormal glucose affecting Acute O99.810 Anxiety during Acute O99.340, F41.9 Mom's Labs & Results 05/31/20 05/31/20 05/31/20 10:45 10:45 10:45 WBC 11.2 H RBC 4.70 Hgb 14.3 Hct 42.3 MCV 90.0 MCH 30.4 MCHC 33.8 RDW Std Deviation 39.7 RDW Coeff of Gene 11.9 Plt Count 204 MPV 10.9 Immature Gran % (Auto) 0.400 Neut % (Auto) 84.7 H Lymph % (Auto) 8.[address] [place] % (Auto) 5.9 Eos % (Auto) 0.1 Baso % (Auto) 0.2 Absolute Neuts (auto) 9.5 H Absolute Lymphs (auto) 0.98 Nucleated RBC % 0 Sodium 137 Potassium 3.9 Chloride 106 Carbon Dioxide 22.0 Anion Gap 9 BUN 13 Creatinine 0.79 Estim Creat Clear Calc 113.77 Est GFR (MDRD) Af Amer 113 Est GFR (MDRD) Non-Af 94 BUN/Creatinine Ratio 16.4 Glucose 92 Calcium 9.4 Total Bilirubin 0.20 AST 18 ALT 17 Alkaline Phosphatase 117 Total Protein 7.3 Albumin 2.8 L Globulin 4.5 H Albumin/Globulin Ratio 0.6 L Urine Color Urine Clarity Urine pH Ur Specific [place] Urine Protein Urine Glucose (UA) Urine Ketones Urine Occult Blood Urine Nitrite Urine Bilirubin Urine Urobilinogen Ur Leukocyte Esterase Urine RBC Urine WBC Ur Squamous Epith Cells Urine Bacteria Urine Mucus Blood Type A POSITIVE Antibody Screen NEGATIVE 05/31/20 11:10 WBC RBC Hgb Hct MCV MCH MCHC RDW Std Deviation RDW Coeff of Gene Plt Count MPV Immature Gran % (Auto) Neut % (Auto) Lymph % (Auto) [place] % (Auto) Eos % (Auto) Baso % (Auto) Absolute Neuts (auto) Absolute Lymphs (auto) Nucleated RBC % Sodium Potassium Chloride Carbon Dioxide Anion Gap BUN Creatinine Estim Creat Clear Calc Est GFR (MDRD) Af Amer Est GFR (MDRD) Non-Af BUN/Creatinine Ratio Glucose Calcium Total Bilirubin AST ALT Alkaline Phosphatase Total Protein Albumin Globulin Albumin/Globulin Ratio Urine Color Yellow Urine Clarity Sl. Cloudy Urine pH 6.5 Ur Specific [place] 1.020 Urine Protein 30 H Urine Glucose (UA) Normal Urine Ketones 50 H Urine Occult Blood 50 H Urine Nitrite Negative Urine Bilirubin Negative Urine Urobilinogen Normal Ur Leukocyte Esterase 25 H Urine RBC 0-5 SEEN Urine WBC 0-5 SEEN Ur Squamous Epith Cells 0-5 SEEN Urine Bacteria 2+ Urine Mucus 3+ Blood Type Antibody Screen Course Did the patient receive Yes care? Labs Blood Type: A RH: POSITIVE RPR/VDRL/Syphilis Nonreactive Rubella status Immune HbSAg Negative Date Done: 10/31/19 Chlamydia Negative Gonorrhea Negative HIV/AIDS Non-Reactive Group B Strep: Negative Current Obstetrical History Gestational Diabetes No Incompetent Cervix No Infertility No IUGR No Macrosomia No Hypertension/Pre-eclampsia No Placenta Previa/Abruption No PTL/PROM No Uterine anomaly No Oligohydramnios No Polyhydramnios No Multiple gestation No Past Medical History Asthma No Diabetes No Hypertension No Heart disease No Mitral valve prolapse No Neurologic/Seizure disorder/ No Migraines Kidney disease No Liver disease No Varicosities No Clotting disorders/Hx of DVT No Thyroid Dysfunction No Other medical diseases No Psychiatric disorders Yes: anxiety Major trauma No Abnormal PAP smear No Sleep apnea No Mammogram in the last 2 years No Social History Marital Status: SINGLE Alleged father deidre diaz Hx Smoking No Smoking Status Never smoker Have you had any previous pt had dilaudid 1 mg today and 2 oxycodone for inpatient or outpatient pain treatment fioricet as needed for headache last taken 2 weeks ago Expected Infant Delivery Method: Spontaneous Vaginal Review of Systems Constitutional: Denies: Chills, Fever, Weight Change HEENT: Denies: Head Aches, Sinus Congestion, Sinus Drainage Cardiovascular: Denies: Chest Pain, Palpitations Respiratory: Denies: Cough, Shortness of breath at rest, Sputum production Gastrointestinal: Reports: - - Right sided flank pain. Denies: Abdominal Pain, Nausea, Vomiting Genitourinary: Denies: Dysuria Musculoskeletal: Denies: Joint Pain, Joint Tenderness Skin: Denies: Rash, Wounds Neurological: Denies: Numbness, Tingling, Focal weakness Psychiatric: Denies: Anxiety, Depression, Homicidal Ideations, Suicidal Ideations Hematologic/ Lymphatic: Denies: Easy Bruising, Easy Bleeding Physical Exam Vitals: Vital Signs Temp Pulse BP Pulse Ox 98.2 F 92 99/60 98 05/31/20 17:12 05/31/20 18:11 05/31/20 18:11 05/31/20 18:10 General: Alert, Oriented x3, Cooperative HEENT: Atraumatic, Normocephalic Cardiovascular: Regular rate, Regular Rhythm, No murmurs Lungs: Clear to auscultation, Normal air movement, No rhonchi, No wheeze Abdomen: Bowel Sounds Present, Gravid - No RUQ abdominal pain Neurological: Deep Tendon Reflexes 2+/4 and Symmetrical. 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 Station: -1 Effacement (%): 80 - Pitocin at 8 mus Assessment/Plan All Active Problems Encounter for induction of labor (Acute) Prolonged heart deceleration (Acute) History of kidney stones (Acute) Abnormal glucose affecting (Acute) Anxiety during (Acute) This is a 24 year-old, G [1], P [0], at 39 weeks 6 weeks gestational age. A:Induction of labor Category 2 FHT P: 1)Admit to labor and delivery. Routine labs 2)GBS negative 3)COVID negative 4)Epidural for pain management 5)IUPC and FSE placed. Pitocin for induction of labor 6) notified of patient in labor and collaborative physician 7)Category 2 EFM with baseline increased, WBC 11.2, afebrile
[2020-05-31] MEDS: Lactated Ringers 1,000 ML 200 ML IV (19:35)
[2020-05-31] MEDS: Mag Hydrox/Al Hydrox/Simeth 30 ML UDC PO (20:47)
[2020-05-31] MEDS: Acetaminophen 500 MG Tablet PO (21:28)
[2020-05-31] MEDS: Amnioinfusion- 0.9% NS 1,000 ML IV.SOLN. 200 ML INTRA-UTER (22:40)
[2020-06-01] VITALS (37 sets, daily range): BP systolic 85–147; BP diastolic 50–89; PULSE 68–172; RESP 16–18; TEMP 36–37.6; O2SAT 93–99
[2020-06-01] MEDS: Lactated Ringers 1,000 ML 200 ML IV ×2 (01:35→06:57)
[2020-06-01] MEDS: fentaNYL-bupivacaine (epidural) 100 ML BAG EPIDURAL ×2 (02:10→07:00)
[2020-06-01] MEDS: Lactated Ringers 500 ML 999 ML IV (05:10)
[2020-06-01] MEDS: proCHLORPERazine 10 MG/2 ML Vial IV (09:17)
[2020-06-01] MEDS: Oxytocin 30 units/NS 500 ml 30 UNITS/500 ML IV.SOLN 334 UNITS IV (11:22)
--- NOTE | 2020-06-01 11:29 | PCM.OPRPT ---
Vaginal Delivery Maternal Presentation: Medically Indicated Induction Method of Induction: Pitocin, Amniotomy Amniotic Membrane Rupture Type: Artificial Amniotic Fluid Description: Clear Final AMOS: 06/01/20 Gestational age: 40 Weeks and 0 Days Date of Procedure: 06/01/20 Pre-Operative Diagnosis: Non reassuring heart tracing Post-Operative Diagnosis: Same Surgery/ Procedure Performed: Vacuum Assisted Vaginal Delivery Type of Anesthesia: Epidural Description of Procedure: Patient was complete & pushing with CNM (Barby Diaz) at bedside. Called to delivery for persistent decreased fht's. Patient verbally consent for vacuum placement. Vacuum placed on head when fetus was C/C/+3. Vacuum position confirmed on head and with one ctx and pull of the vacuum the head delivered. Shoulders & body immediately followed and delivery completed by CNM. Placenta delivered with gentle traction & good uterine tone obtained. Laceration repaired by CNM. Presentation: Vertex Placental Delivery Description: Expressed Placenta Disposition: [facility] Cord Vessel Description: 3 Vessels Nuchal Cord Compression: With compression Cord Entanglement: Around neck x 1, loose Estimated Blood Loss: 400ml A gender: Female - Aruna (1 minute): 8 (5 minute): 9 Episiotomy Description: None Laceration: 2nd degree - perineal - repaired with 3-0 vicryl Medications given after delivery: IV Pitocin Complications: None
[2020-06-01] MEDS: 0.9% Saline Lock 10 ML Syringe IV (14:00)
[2020-06-01] MEDS: Ibuprofen 600 MG Tablet PO (16:18)
--- NOTE | 2020-06-01 18:26 | NURSING ---
pt partially missed the hat. voided large amount. states feels bladder emptied
[2020-06-01] MEDS: Acetaminophen 500 MG Tablet 1000 MG PO (19:51)
[2020-06-02 03:18] VITALS: BP 134/85; PULSE 101; RESP 16; TEMP 36.9
[2020-06-02] MEDS: Ibuprofen 600 MG Tablet PO ×2 (03:20→12:46)
--- NOTE | 2020-06-02 08:19 | PCM.PN.OB ---
Patient Problems: Active and Suspected Problems Encounter for induction of labor (Acute) Prolonged heart deceleration (Acute) History of kidney stones (Acute) Abnormal glucose affecting (Acute) Anxiety during (Acute) Subjective: Patient seen at bedside. . Stated feeling good and desires discharge home today. Lochia decreased. Ambulating and voiding without difficulty. - Physical Exam Vitals/I&O's: Vital Signs Temp Pulse Resp BP Pulse Ox 98.4 F 101 H 16 134/85 H 99 06/02/20 03:18 06/02/20 03:18 06/02/20 03:18 06/02/20 03:18 06/01/20 14:00 Oxygen Delivery Method Room Air Weight: 266 lb 12.149 oz Body Mass Index (BMI) 39.4 Intake and Output for Last 24 Hours 05/31/20 06/01/20 06/02/20 23:59 23:59 23:59 Intake Total 3360.97 / 3360.97 3952.61 / 3952.61 Output Total 550 / 550 1600 / 1600 Balance 2810.97 / 2810.97 2352.61 / 2352.61 General: Alert, Oriented x3 HEENT: Normocephalic Lungs: Normal air movement Cardiovascular: Regular rate Abdomen: Soft, Non Tender Extremities: No Calf Tenderness Skin: No rashes Neurological: Cranial nerves II-XII grossly intact Microbiology Past 72 Hours 05/31/20 11:10 Urine, Clean Catch Urine Culture - Final Mixed Gram Positive Organisms 05/31/20 14:40 Mucosa - Nose SARS-CoV-2 Antigen (Rapid) - Final Current Medications Acetaminophen (Acetaminophen 500 Mg Tablet) 1,000 mg PO Q8H PRN PRN PRN Reason: Pain Score 1-3 Last Admin: 06/01/20 19:51 Dose: 1,000 mg Documented by: Bisacodyl (Bisacodyl 10 Mg Suppository) 10 mg RECTAL UD PRN PRN Reason: If no BM Dibucaine (Dibucaine 30 Gm Tube) 1 applic TOPICAL TID PRN PRN; Protocol PRN Reason: Discomfort Hydrocortisone (Hydrocortisone 2.5% Crm) 1 applic TOPICAL TID PRN PRN; Protocol PRN Reason: Discomfort Ibuprofen (Ibuprofen 600 Mg Tablet) 600 mg PO Q6H PRN PRN PRN Reason: Pain Score 1-3 Last Admin: 06/02/20 03:20 Dose: 600 mg Documented by: Methylergonovine Maleate (Methylergonovine 0.2 Mg/Ml Ampul) 0.2 mg IM X1 PRN PRN Reason: Excess bleeding/uterine atony Ondansetron HCl (Ondansetron 4 Mg/2 Ml Vial) 4 mg IV Q4H PRN PRN PRN Reason: Nausea Oxycodone HCl (Oxycodone 5 Mg Tablet) 5 - 10 mg PO Q4H PRN PRN PRN Reason: Pain Score 4-10 Senna/Docusate Sodium (Senna/Docusate Sodium 1 Tablet) 1 - 2 tablet PO DAILY PRN PRN PRN Reason: Constipation Simethicone (Simethicone 80 Mg Tablet) 80 mg PO PCHS PRN PRN Reason: Indigestion/Stomach pain Sodium Chloride (0.9% Saline Lock 10 Ml Syringe) 5 - 15 ml IV UD PRN PRN Reason: SALINE FLUSH Last Admin: 06/01/20 14:00 Dose: 10 ml Documented by: Throat Lozenges (Benzocaine/Lanolin/Aloe Vera 1 Applic Each) 1 applic TOPICAL 4X/DAY PRN PRN; Protocol PRN Reason: Pain/Inflammation Last Admin: 06/01/20 16:18 Dose: 1 applic Documented by: Medical Necessity - Tobacco Use Smoking Status: Never smoker Assessment/Plan All Active Problems Encounter for induction of labor (Acute) Prolonged heart deceleration (Acute) History of kidney stones (Acute) Abnormal glucose affecting (Acute) Anxiety during (Acute) PPD #1 Routine care support Discharge home with follow up in office at 2 weeks PP
--- NOTE | 2020-06-02 08:23 | DCINST_ITS ---
Additional Instructions: If you experience any of the following, contact your healthcare provider. * Bleeding that soaks a pad every hour for 2 hours * Fever 100.4 or higher * Unrelieved incision or abdominal pain * Swelling, redness, discharge or bleeding from your incision or episiotomy site * Your incision begins to separate * Problems urinating (including inability to urinate or burning while urinating). * Visual changes * Severe headache * Flu-like symptoms * Pain or redness in one of both of your breasts * Pain, warmth, tenderness or swelling in your legs, especially the calf area * Frequent nausea and vomiting * Symptoms of depression or anxiety If you experience any of the following, call 911 or go to the nearest Emergency Room. * Chest pain * Problems breathing * Seizure activity * Partial or complete paralysis of a body part, slurred speech, weakness or drooping of the face, or a sudden inability to walk or hold your balance Allergies/Adverse Reactions: Allergies No Known Allergies Allergy (Verified 07/13/18 15:09) Medications to take at Discharge Vits [Prenatabs FA ] 1 tab PO DAILY 05/31/20 When: 2 weeks virtual visit, 6 weeks in office Primary Care Physician: Evette Albarado DO [Primary Care Provider] - Test Results: Test results from this visit will be discussed in further detail at your follow- up appointment, if applicable. Proposed Discharge Date: 06/02/20
--- NOTE | 2020-06-02 08:23 | PCM.DCVAG ---
Additional Instructions: If you experience any of the following, contact your healthcare provider. Bleeding that soaks a pad every hour for 2 hours Fever 100.4 or higher Unrelieved incision or abdominal pain Swelling, redness, discharge or bleeding from your incision or episiotomy site Your incision begins to separate Problems urinating (including inability to urinate or burning while urinating). Visual changes Severe headache Flu-like symptoms Pain or redness in one of both of your breasts Pain, warmth, tenderness or swelling in your legs, especially the calf area Frequent nausea and vomiting Symptoms of depression or anxiety If you experience any of the following, call 911 or go to the nearest Emergency Room. Chest pain Problems breathing Seizure activity Partial or complete paralysis of a body part, slurred speech, weakness or drooping of the face, or a sudden inability to walk or hold your balance Allergies/Adverse Reactions: Allergies No Known Allergies Allergy (Verified 07/13/18 15:09) Medications to take at Discharge Vits [Prenatabs FA ] 1 tab PO DAILY 05/31/20 When: 2 weeks virtual visit, 6 weeks in office Primary Care Physician: Evette Albarado DO [Primary Care Provider] - Test Results: Test results from this visit will be discussed in further detail at your follow-up appointment, if applicable. Proposed Discharge Date: 06/02/20
[2020-06-02 08:39] VITALS: BP 127/85; PULSE 92; RESP 18; TEMP 36.4
[2020-06-02 15:18] VITALS: BP 117/77; PULSE 96; RESP 18; TEMP 36.6
== END 2020-06-02 16:00 | disposition home or self-care (01) | DRG 560 ==
LOC: WPOUT 14:11 → WP 14:11
PROVIDERS: Admitting Provider Obstetrics & Gynecology; PCP Internal Medicine; Visit Provider Advanced Practice Midwife
DX: O76 Abnormality in fetal heart rate and rhythm complicating labor and delivery (principal); Z3A.39 39 weeks gestation of pregnancy; Z37.0 Single live birth; O69.1XX0 Labor and delivery complicated by cord around neck, with compression, not applicable or unspecified; O70.1 Second degree perineal laceration during delivery
CPT/HCPCS: 59025; 59050; 76770; 80053; 81001; 85025; 86850; 86900; 86901; 87086; 87088; 87426; 99218; J7030; J7120; A4216; G0378; J2405

== ENCOUNTER → 2023-12-17 | Outpatient (CLI) | payer OTHER, SELFPAY ==
[2023-12-22 10:09] LABS: Almond 0.35 kU/L (Class I); Beef <0.10 kU/L (Class 0); Chicken <0.10 kU/L (Class 0); Clam <0.10 kU/L (Class 0); Codfish <0.10 kU/L (Class 0); Corn 0.34 kU/L (Class I); Egg, White <0.10 kU/L (Class 0); Egg, Whole <0.10 kU/L (Class 0); Milk (Cow) <0.10 kU/L (Class 0); Oat 0.19 kU/L (Class 0/I); Peanut 0.34 kU/L (Class I); Pecan <0.10 kU/L (Class 0); Rice <0.10 kU/L (Class 0); SCALLOP <0.10 kU/L (Class 0); SESAME SEED 0.13 kU/L (Class 0/I); Shrimp <0.10 kU/L (Class 0); Soybean <0.10 kU/L (Class 0); Walnut, (Food) 0.29 kU/L (Class 0/I); Wheat 0.22 kU/L (Class 0/I)
== END | disposition home or self-care (01) ==
LOC: LAB 10:34
PROVIDERS: PCP Family Medicine; Referring Provider Otolaryngology Otolaryngology/Facial Plastic Surgery; Visit Provider Otolaryngology Otolaryngology/Facial Plastic Surgery
DX: T78.40XA Allergy, unspecified, initial encounter (principal); X58.XXXA Exposure to other specified factors, initial encounter
CPT/HCPCS: 36415; 86003

== ENCOUNTER → 2024-07-26 | Outpatient (CLI) | payer OTHER, SELFPAY ==
--- NOTE | 2024-07-26 16:57 | RAD_ITS ---
PROCEDURE: FOOT MIN 3 VIEWS REASON FOR EXAM: Unknown. TECHNIQUE: Three views of the right foot. COMPARISON: None. FINDINGS: RIGHT FOOT: No visible fracture. No suspicious bone lesion. Normal alignment. Soft tissues are unremarkable. RAD/Foot min 3 Views IMPRESSION: No acute osseous abnormality. Reading Location: [id number]
== END | disposition home or self-care (01) ==
LOC: MTRAD 16:56
PROVIDERS: PCP Family Medicine; Referring Provider Physician Assistant Surgical; Visit Provider Physician Assistant Surgical
DX: M79.671 Pain in right foot (principal)
CPT/HCPCS: 73630

== ENCOUNTER 2024-11-02 23:02 | Emergency (ER) | payer OTHER, SELFPAY ==
[2024-11-02 23:03] VITALS: BP 140/101; PULSE 95; RESP 17; TEMP 36.3; O2SAT 97; BMI 39.6
--- NOTE | 2024-11-02 23:16 | EDS_ITS ---
HPI History of Present Illness Chief Complaint: Other, Pain/Inj Narrative Narrative: 29-year-old female presents with generalized weakness and shakiness that she had earlier this evening. She relates history that she has had hives all over her body for the last 3 weeks. She had an episode of hives last year where it was mainly on her arms where this episode started a few weeks ago. She was on different antihistamines and hydroxyzine as well. She states that 3 weeks ago she started having hives on her arms and now they have spread. Tonight she noticed them on her hands and her legs are where they are more severe. She felt very weak, and stated that her joints started hurting her. She felt shaky as well. Of note, she saw dermatology and allergy/immunology and currently she is taking hydroxyzine and prednisone started by her primary. This is day 4 of prednisone. She is not diabetic. She denies any exacerbating or alleviating factors. No fevers or chills, no shortness of breath, no throat closing. PFSH PFSH Home Medications ?Medication ?Instructions ?Recorded ?Last Taken ?Type hydroxyzine HCl 25 mg tablet 25 mg PO QHS 07/06/23 Unk nown History cyclobenzaprine 10 mg tablet 10 mg PO TID PRN Muscle S pasm #20 11/03/24 Unknown Rx TABLETS naproxen 500 mg tablet (Naprosyn) 500 mg PO BID PRN pa in #20 tabs 11/03/24 Unknown Rx Allergy/AdvReac Type Severity Reaction Status Date / Time No Known Allergies Allergy Verified 11/02/24 23:03 Social History Smoking Status: Never smoker ROS ROS ED ROS Narrative Review of systems positive for shakiness, generalized weakness, and full body hives. The hives have been present for the last 3 weeks. No throat closing, no difficulty swallowing or breathing. No recent fevers or chills. No nausea or vomiting. EXAM Physical Exam Narrative Exam Narrative: Afebrile. Vital signs noted. Nontoxic-appearing. Cardiovascular examination reveals regular rate and rhythm. Lungs are clear to auscultation bilaterally. Abdomen is soft, nontender, without guarding or rebound. Positive bowel sounds. Neurological examination nonfocal, nonlateralizing. HEENT shows no drooling or trismus. Speaking in full sentences. Const Vital Signs: 11/02/24 23:03 11/02/24 23:46 11/03/24 01:03 Temperature 97.4 F L Temperature Source Temporal Pulse Rate 95 91 Respiratory Rate 17 16 Respiratory Effort Normal Non-Labored Respiratory Pattern Normal Blood Pressure 140/101 H 124/76 H Blood Pressure Mean 114 92 Pulse Ox 97 96 Oxygen Delivery Method Room Air Room Air MDM MDM MDM Narrative Medical decision making narrative: Differential diagnosis includes but not limited to dehydration versus other electrolyte imbalance versus medication side effect from prednisone and antihistamines. I discussed use of epinephrine for her hives with her, and through shared decision making, she does not merit an EpiPen currently as she does not have throat closing or wheezing. I reviewed her laboratory work and she has a leukocytosis of 15.5 which I think is nonspecific, hemoglobin normal at 14.5, hematocrit 42.1. CMP grossly unremarkable except for glucose 171 with a normal anion gap of 13. LFTs grossly unremarkable. Serum is negative. Urinalysis obtained and reviewed and is negative for infection. I do not feel antibiotics are indicated. She is not having dysuria or hematuria. At this point in time, I was unsure as to the cause of her weakness, more her arthralgias and myalgias. I did offer to swab her for COVID, influenza, and RSV but she declined. She was given Toradol for analgesia. Repeat examination did show that she could ambulate/shuffle, but she was able to ambulate into the emergency department into her room. 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 I do not feel she requires observation or admission. I wrote her for NSAIDs and muscle relaxers but she was told not to take prednisone in combination with nonsteroidal anti-inflammatories. She will follow-up with her primary care provider. Return instructions were reviewed. Disposition is discharged home in stable condition. History & Record Review Discussion w/independent historian: Patient Additional record(s) reviewed:: Prior ED visit (Noncontributory to current chief complaint) Lab Data Attestation: I reviewed the patient's lab results. Labs: Laboratory Results - last 24 hr 11/02/24 23:40 WBC 15.5 H RBC 4.81 Hgb 14.5 Hct 42.1 MCV 87.5 MCH 30.1 MCHC 34.4 RDW Std Deviation 38.3 RDW Coeff of Gene 11.9 Plt Count 281 MPV 10.3 Immature Gran % (Auto) 0.600 Neut % (Auto) 71.3 H Lymph % (Auto) 18.5 L [place] % (Auto) 9.1 Eos % (Auto) 0.2 Baso % (Auto) 0.3 Absolute Neuts (auto) 11.1 H Absolute Lymphs (auto) 2.88 Nucleated RBC % 0 Sodium 138 Potassium 3.6 Chloride 102 Carbon Dioxide 23.8 Anion Gap 13 BUN 16 Creatinine 0.79 Estim Creat Clear Calc 140.68 Est GFR (MDRD) Non-Af 103 BUN/Creatinine Ratio 20.7 H Glucose 171 H Calcium 9.6 Total Bilirubin 0.22 AST 14 ALT 13 Alkaline Phosphatase 89 Total Protein 7.9 Albumin 4.1 Globulin 3.8 Albumin/Globulin Ratio 1.1 Serum , Qual NEGATIVE Urine Color Yellow Urine Clarity Clear Urine pH 6.0 Ur Specific [place] 1.025 Urine Protein 30 H Urine Glucose (UA) Normal Urine Ketones Negative Urine Occult Blood 250 H Urine Nitrite Negative Urine Bilirubin Negative Urine Urobilinogen Normal Ur Leukocyte Esterase Negative Urine RBC 0-5 SEEN Urine WBC 0 SEEN Ur Squamous Epith Cells 0-5 SEEN Urine Bacteria 1+ Urine Mucus 0 SEEN Discharge Plan Triage Chief Complaint: Other, Pain/Inj ED Provider: Lang Mccall Dx/Rx/DC Orders Clinical Impression: Arthralgia, Full body hives, Generalized weakness Instructions: ED Arthralgia, ED Hives (Adult), ED Pain, Acute, Uncertain Cause, ED Weakness Uncertain Cause Prescriptions: New naproxen [Naprosyn] 500 mg tablet 500 mg PO BID PRN (Reason: pain) Qty: 20 0RF cyclobenzaprine 10 mg tablet 10 mg PO TID PRN (Reason: Muscle Spasm) Qty: 20 0RF No Action hydroxyzine HCl 25 mg tablet 25 mg PO QHS Primary Care Provider: Ketan Estevez Referrals: Ketan Estevez MD [Primary Care Provider] - 3-5 Days Activity Restrictions/Additional Instructions: Medication as directed. Do not take nonsteroidal anti-inflammatories while you are on prednisone. Return to the emergency department with fever, new or worsening symptoms. Print Language: Nigerien Disposition Disposition: Home, Self Care
[2024-11-02] MEDS: 0.9% Normal Saline (1000mL) 1,000 ML 1000 ML IV (23:39)
[2024-11-02 23:53] LABS: Mucous, Urine 0 SEEN /hpf (<or=2+); White Blood Cells 0 SEEN /hpf (0-5)
[2024-11-03 00:07] LABS: Internal QC Validated? YES +Cl - CLEAR BKGD; Pregnancy, Serum, hCG Quali. NEGATIVE Negative
[2024-11-03 00:08] LABS: Record Kit Lot#, Serum Preg. 929381
[2024-11-03 00:10] LABS: Color, Urine Yellow (Yellow); Glucose, Dipstick Normal (Normal); Ketone-Dipstick Negative (Negative); Leukocyte Esterase-Dipstick Negative /ul (Negative); Nitrite-Dipstick Negative (Negative); Occult Blood-Urine 250 /ul (Negative); Protein-Dipstick 30 mg/dl (Negative); Specific Gravity, Urine 1.025 (1.002-1.030); Urine Bilirubin Dipstick Negative (Negative); Urine Clarity Clear (Clear); Urine Urobilinogen Normal (Normal)
[2024-11-03 00:11] LABS: Absolute Lymphocyte Count 2.88 X10^3/uL (0.83-4.51); Absolute Neutrophil Count 11.1 X10^3/uL (2.0-7.7); Basophil# 0.05 X10^3/uL; Basophil% 0.3 % (0-1); Eosinophil# 0.03 X10^3/uL; Eosinophils% 0.2 % (0-5); Hematocrit 42.1 % (37-47); Hemoglobin 14.5 g/dL (12.0-15.0); Lymphocyte # 2.88 X10^3/ul (0.83-4.51); Lymphocyte % 18.5 % (19-41); Mean Corp Hgb Conc 34.4 g/dL (32-36); Mean Corpuscular Hgb 30.1 pg (27.0-32.0); Mean Corpuscular Volume 87.5 fL (81-99); Mean Platelet Vol. 10.3 fl (6.2-12.0); Monocyte# 1.41 X10^3/uL; Monocyte% 9.1 % (0-10); NRBC Flagged by Analyzer 0 % (0-5); Neutrophil # 11.08 X10^3/uL (2.7-7.7); Neutrophil % 71.3 % (47-70); Platelet Count 281 K/mm3 (150-450); RBC Distribution Width CV 11.9 % (11.6-14.6); RBC Distribution Width SD 38.3 fl (35.1-43.9); Red Blood Count 4.81 M/mm3 (4.2-5.4); White Blood Count 15.5 K/mm3 (4.4-11.0)
[2024-11-03 00:12] LABS: ALB/GLOB Ratio 1.1 RATIO (0.9-2.4); AST(SGOT) 14 U/L (<=31); Alanine Aminotransfer ALT/SGPT 13 U/L (<=34); Albumin, Serum 4.1 g/dL (3.5-5.0); Alkaline Phosphatase 89 U/L (35-104); Anion Gap 13 (5-15); BUN 16 mg/dL (4-19); BUN/Creat Ratio 20.7 RATIO (10-20); Bacteria 1+ /hpf (None Seen); Calcium,Total 9.6 mg/dL (7.6-11.0); Carbon Dioxide 23.8 mmol/L (21.0-32.0); Chloride 102 mmol/L (98-108); Creatinine, Serum 0.79 mg/dL (0.70-1.20); EST Glomerular Filtration Rate 103 (>60); Estimated Creatinine Clearance 140.68 ml/min (50-250); Globulin 3.8 g/dL (2.2-4.2); Glucose 171 mg/dL (70-99); Potassium 3.6 mmol/L (3.3-5.1); Protein, Total 7.9 g/dL (5.9-8.4); Red Blood Cells-Urine 0-5 SEEN /hpf (0-5); Sodium Level 138 mmol/L (133-145); Squamous Epithelial Cells - UA 0-5 SEEN /hpf (5-10); Total Bilirubin 0.22 mg/dL (0.00-1.30)
[2024-11-03] MEDS: Ketorolac 15 MG/ML Vial IV (00:38)
[2024-11-03 01:03] VITALS: BP 124/76; PULSE 91; RESP 16; O2SAT 96
[2024-11-03] MEDS: Orphenadrine 100 MG Tablet PO (01:46)
[2024-11-03 01:51] VITALS: BP 124/76; PULSE 91; RESP 16; TEMP 36.3; O2SAT 96
== END 2024-11-03 01:53 | disposition home or self-care (01) ==
PROVIDERS: Emergency Provider Emergency Medicine; PCP Family Medicine; Visit Provider Emergency Medicine
DX: L50.9 Urticaria, unspecified (principal); R53.1 Weakness; M25.50 Pain in unspecified joint
CPT/HCPCS: 80053; 81001; 84703; 85025; 96361; 96374; 99282; A4216

== ENCOUNTER 2025-01-28 10:11 | Emergency (ER) | payer OTHER, SELFPAY ==
[2025-01-28 10:11] VITALS: BP 152/107; PULSE 73; RESP 14; TEMP 36.3; O2SAT 98; BMI 39.3
[2025-01-28 11:07] LABS: Color, Urine Yellow (Yellow); Glucose, Dipstick Normal (Normal); Ketone-Dipstick 5 mg/dl (Negative); Leukocyte Esterase-Dipstick 25 /ul (Negative); Nitrite-Dipstick Negative (Negative); Occult Blood-Urine 250 /ul (Negative); Protein-Dipstick 30 mg/dl (Negative); Specific Gravity, Urine 1.025 (1.002-1.030); Urine Bilirubin Dipstick 1 mg/dL (Negative)
[2025-01-28 11:09] LABS: Hematocrit 41.6 % (37-47); Hemoglobin 14.0 g/dL (12.0-15.0); Immature Granulocytes Count 0.030 X10^3/uL (0.0-0.0); Mean Corp Hgb Conc 33.7 g/dL (32-36); Mean Corpuscular Volume 85.6 fL (81-99); Mean Platelet Vol. 10.0 fl (6.2-12.0); NRBC Flagged by Analyzer 0 % (0-5); Platelet Count 239 K/mm3 (150-450); RBC Distribution Width CV 12.6 % (11.6-14.6); RBC Distribution Width SD 39.1 fl (35.1-43.9); Red Blood Count 4.86 M/mm3 (4.2-5.4); White Blood Count 7.2 K/mm3 (4.4-11.0)
[2025-01-28 11:13] LABS: Mucous, Urine 1+ /hpf (<or=2+); Red Blood Cells-Urine 25-50 SEEN /hpf (0-5); Squamous Epithelial Cells - UA 5-10 SEEN /hpf (5-10)
[2025-01-28 11:14] LABS: Internal QC Validated? YES +Cl - CLEAR BKGD; Pregnancy, Urine Negative Negative; Record Kit Lot#,Urine Preg 0000962302
--- NOTE | 2025-01-28 11:24 | CT_ITS ---
PROCEDURE: ABDOMEN/PELVIS WITHOUT CONT 01/28/2025 REASON FOR EXAM: PAIN/KIDNEY STONE TECHNIQUE: ABDOMEN/PELVIS WITHOUT CONT Noncontrast technique limits evaluation of the abdominal and pelvic viscera. Coronal and Sagittal reconstruction series were provided. One or more dose reduction techniques were used (e.g., Automated exposure control, adjustment of the mA and/or kV according to patient size, use of iterative reconstruction technique). RADIATION DOSE SUMMARY: CTDlvol: 23 mGy DLP: 1357 mGycm COMPARISON: July 04, 2018 FINDINGS: Lung bases: Clear Liver: Clear Gallbladder: A 2.9 cm rim calcified stone is seen near the fundus. Gallbladder is otherwise unremarkable. Spleen: Normal. Pancreas: Normal. Adrenals: Normal Kidneys: No collecting system dilation is seen on either side. High-density calculus in the dependent portion of the bladder may represent a passed stone. A 4.6 mm calculus is seen in the anterior right midpole. 2 mm punctate calculus posterior left lower pole. Bladder: No bladder distention or wall thickening. 3 mm calculus dependently. Reproductive Organs: Uterus and ovaries are normal. Bowel: Small sliding hiatus hernia. Small bowel is unremarkable. Colon is unremarkable. Appendix: Normal Lymph nodes: None appear enlarged. Vasculature: Normal Peritoneum / Retroperitoneum: No free air, free fluid or mass. Bones: Normal CT/Abdomen/Pelvis without Cont IMPRESSION: 1. Gallstone 2. Bilateral renal calculi. No collecting system dilation seen. Calculus dep endently in the urinary bladder may be a recently passed stone. Correlate with urinalysis. 3. Small sliding hiatus hernia. Reading Location: [id number]
[2025-01-28 11:43] LABS: AST(SGOT) 15 U/L (<=31); Alanine Aminotransfer ALT/SGPT 12 U/L (<=34); Albumin, Serum 4.2 g/dL (3.5-5.0); Alkaline Phosphatase 80 U/L (35-104); Anion Gap 13 (5-15); BUN 12 mg/dL (4-19); BUN/Creat Ratio 14.9 RATIO (10-20); Calcium,Total 9.6 mg/dL (7.6-11.0); Carbon Dioxide 22.5 mmol/L (21.0-32.0); Chloride 103 mmol/L (98-108); Estimated Creatinine Clearance 133.46 ml/min (50-250); Globulin 3.3 g/dL (2.2-4.2); Glucose 106 mg/dL (70-99); Potassium 3.8 mmol/L (3.3-5.1)
[2025-01-28 12:11] VITALS: BP 124/85; PULSE 80; O2SAT 100
--- NOTE | 2025-01-28 12:11 | EX.ED.DYSGE1 ---
HPI History of Present Illness Chief Complaint: Flank Pain Narrative Narrative: Patient is a 29-year-old female presenting emergency department for right-sided flank pain that started at 1 AM this morning. Patient has a past medical history of a kidney stone and states this feels very similar. States the pain comes and goes in waves. She states she took Aleve and Tylenol at 1 AM for the pain. She endorses nausea associated with the waves of pain. Denies any fever, chills, chest pain, shortness of breath, vomiting, diarrhea, dysuria or hematuria. Denies any vaginal bleeding, discharge or pelvic pain. PFSH PFSH Home Medications ?Medication ?Instructions ?Recorded ?Last Taken ?Type hydroxyzine HCl 25 mg tablet 25 mg PO QHS 07/06/23 Unknown History cyclobenzaprine 10 mg tablet 10 mg PO TID PRN Muscle Spasm #20 11/03/24 Unknown Rx TABLETS naproxen 500 mg tablet (Naprosyn) 500 mg PO BID PRN pain #20 tabs 11/03/24 Unknown Rx naproxen 500 mg tablet 500 mg PO BID PRN #20 tabs 01/28/25 Unknown Rx Allergy/AdvReac Type Severity Reaction Status Date / Time No Known Allergies Allergy Verified 01/28/25 10:12 Social History housing: house Smoking Status: Never smoker ROS ROS ED ROS Narrative Please see HPI EXAM Physical Exam Narrative Exam Narrative: Vital signs: Reviewed General: Alert and oriented. No acute distress HEENT: Head is normocephalic and atraumatic, sinuses nontender, pupils equal round and reactive. Nares are patent. Oropharynx and throat exams normal. Neck: Supple without lymphadenopathy nontender Cardiovascular: Regular rate and rhythm, no murmurs. No rubs or gallops. Normal S1 and S2 Respiratory: Clear to auscultation bilaterally. No wheezes, rales, rhonchi Abdominal: Soft and tender. Normal bowel sounds. No guarding or rebound. Nonsurgical abdomen. Right sided mild CVA tenderness. No left CVA tenderness. Extremities: No tenderness. No bruising. Normal range of motion. Normal sensation. Skin: No rash or redness. Neurological: Cranial nerves II through XII are grossly intact. Normal strength and sensation. Normal cerebellar function The rest of the physical exam is unremarkable Const Vital Signs: 01/28/25 10:11 01/28/25 12:11 01/28/25 13:11 Temperature 97.3 F L 98.3 F Temperature Source Temporal Pulse Rate 73 80 80 Respiratory Rate 14 18 Blood Pressure 152/107 H 124/85 H 124/85 H Blood Pressure Mean 122 98 98 Pulse Ox 98 100 100 Oxygen Delivery Method Room Air MDM MDM MDM Narrative Medical decision making narrative: Patient is a 29-year-old female presenting to emergency department for right-sided flank pain. No abdominal pain. Patient was seen and examined. Vitals are stable. Patient resting bed comfortably no acute distress. She was given Toradol and Zofran for symptomatic control. Differential includes but is not limited to: Pyelonephritis, nephrolithiasis, MSK CBC with no leukocytosis and a normal hemoglobin. CMP with no significant abnormalities, normal kidney function. Urinalysis with occult blood and proteinuria. No nitrites or WBCs to suspect UTI. No UTI type symptoms. CT shows gallstones with no evidence of cholecystitis. Again there is no right upper quadrant pain on exam and AST, ALT and alk phos are within normal limits. Bilateral renal calculi. No collecting system dilation seen. Calculus dependently in the urinary bladder may be a recently passed stone. Correlate with urinalysis. Suspect that the patient just recently passed a stone given the blood in her urine and the CT findings. She was reevaluated and is pain-free at time of evaluation. She was updated on the lab and imaging findings. I gave the patient strict return precautions if shops any new or worsening symptoms. She was prescribed naproxen for home if needed however I did explain that if she does develop any new or worsening pain that she needs to return given her symptoms are attributed to a recently passed stone. Encouraged her to follow-up with PCP as soon as possible. History & Record Review Discussion w/independent historian: Patient Lab Data Attestation: I reviewed the patient's lab results. Labs: Laboratory Results - last 24 hr 01/28/25 10:31 WBC 7.2 RBC 4.86 Hgb 14.0 Hct 41.6 MCV 85.6 MCH 28.8 MCHC 33.7 RDW Std Deviation 39.1 RDW Coeff of Gene 12.6 Plt Count 239 MPV 10.0 Immature Gran % (Auto) 0.400 Neut % (Auto) 57.4 Lymph % (Auto) 28.1 [place] % (Auto) 13.0 H Eos % (Auto) 0.8 Baso % (Auto) 0.3 Absolute Neuts (auto) 4.1 Absolute Lymphs (auto) 2.02 Nucleated RBC % 0 Sodium 138 Potassium 3.8 Chloride 103 Carbon Dioxide 22.5 Anion Gap 13 BUN 12 Creatinine 0.83 Estim Creat Clear Calc 133.46 Est GFR (MDRD) Non-Af 98 BUN/Creatinine Ratio 14.9 Glucose 106 H Calcium 9.6 Total Bilirubin 0.45 AST 15 ALT 12 Alkaline Phosphatase 80 Total Protein 7.5 Albumin 4.2 Globulin 3.3 Albumin/Globulin Ratio 1.3 Urine Color Yellow Urine Clarity Sl. Cloudy Urine pH 6.0 Ur Specific [place] 1.025 Urine Protein 30 H Urine Glucose (UA) Normal Urine Ketones 5 H Urine Occult Blood 250 H Urine Nitrite Negative Urine Bilirubin 1 H Urine Urobilinogen Normal Ur Leukocyte Esterase 25 H Urine RBC 25-50 SEEN Urine WBC 0-5 SEEN Ur Squamous Epith Cells 5-10 SEEN Urine Bacteria 0 SEEN Urine Mucus 1+ Urine Test Negative Radiography Diagnostic Testing: Clinical Impression(s) from Imaging Studies Abdomen/Pelvis CT 01/28/25 11:24 IMPRESSION: 1. Gallstone 2. Bilateral renal calculi. No collecting system dilation seen. Calculus dependently in the urinary bladder may be a recently passed stone. Correlate with urinalysis. 3. Small sliding hiatus hernia. Reading Location: [facility] Discharge Plan Triage Chief Complaint: Flank Pain ED Provider: Luz Elena Keenan Dx/Rx/DC Orders Clinical Impression: History of kidney stones, Rt flank pain Instructions: ED Kidney Stone, Passed Prescriptions: New naproxen 500 mg tablet 500 mg PO BID PRN Qty: 20 0RF No Action hydroxyzine HCl 25 mg tablet 25 mg PO QHS naproxen [Naprosyn] 500 mg tablet 500 mg PO BID PRN (Reason: pain) Qty: 20 0RF cyclobenzaprine 10 mg tablet 10 mg PO TID PRN (Reason: Muscle Spasm) Qty: 20 0RF Primary Care Provider: Ketan Estevez Referrals: Ketan Estevez MD [Primary Care Provider] - Activity Restrictions/Additional Instructions: You can take the naproxen at home for pain control if needed. Follow-up with your primary care doctor soon as possible and return to the ED with any new or worsening symptoms. Print Language: Sinhala Disposition Disposition: Home, Self Care Discharge Date/Time: 01/28/25 13:15
[2025-01-28 13:11] VITALS: BP 124/85; PULSE 80; RESP 18; TEMP 36.8; O2SAT 100
== END 2025-01-28 13:15 | disposition home or self-care (01) ==
PROVIDERS: Emergency Provider Student in an Organized Health Care Education/Training Program; PCP Family Medicine; Visit Provider Student in an Organized Health Care Education/Training Program
DX: R10.9 Unspecified abdominal pain (principal); Z87.442 Personal history of urinary calculi
CPT/HCPCS: 74176; 80053; 81001; 81025; 85025; 96374; 96375; 99283; A4216; J2405

== ENCOUNTER 2025-02-27 12:57 | Emergency (ER) | payer OTHER, SELFPAY ==
[2025-02-27 12:58] VITALS: BP 137/95; PULSE 63; RESP 20; TEMP 36.6; O2SAT 100; BMI 39.7
--- NOTE | 2025-02-27 13:36 | EX.ED.DYSGE1 ---
HPI <Dr. Tanvir Renteria, DO - Last Filed: 02/27/25 15:19> History of Present Illness Chief Complaint: Flank Pain Onset/Context/Timing Onset: Today Context: Sudden Onset Timing: Waxes and wanes Quality: Sharp, cramping Location: Left flank Worsened by: Nothing Relieved by: Nothing Narrative Narrative: Patient presents with left flank pain that began today. Patient states began rather suddenly. Patient states it has been waxing and waning. Patient describes it as sharp and cramping. Patient states it is localized to the left flank. Patient states nothing makes it worse and nothing makes it better. Patient states she did have some nausea and vomiting with it. Patient denies any dysuria or hematuria or frequency. Patient admits to some sweats but denies any fevers or chills. PFSH <Dr. Tanvir Renteria, DO - Last Filed: 02/27/25 15:19> [facility] Medical History (Updated 02/27/25 @ 16:[address] Fermín Berumen MD) History of kidney stones Polyarthralgia Chest pain Myocarditis Home Medications ?Medication ?Instructions ?Recorded ?Last Taken ?Type naproxen 500 mg tablet 500 mg PO BID PRN #20 tabs 01/28/25 Unknown Rx hydroxyzine HCl 25 mg tablet 25 mg PO QHS PRN sleep 02/19/25 Unknown History sertraline 100 mg tablet 100 mg PO QDAY 02/19/25 Unknown History Allergy/AdvReac Type Severity Reaction Status Date / Time No Known Allergies Allergy Verified 02/27/25 12:59 Family History Mother Hypertension Diabetes Surgical History History of tonsillectomy Social History housing: house Smoking Status: Never smoker alcohol intake: current substance use type: does not use caffeine: Yes ROS <Dr. Tanvir Renteria, DO - Last Filed: 02/27/25 15:19> ROS ED Constitutional Constitutional ED: Reports sweats; Denies chills or fever(s) Eyes Eyes: Denies blurry vision or change in vision ENT ENT ED: Denies rhinorrhea or sore throat Cardiovascular Cardiovascular: Denies chest pain or palpitations Respiratory/Chest Respiratory/Chest: Denies cough or dyspnea Gastrointestinal Gastrointestinal: Reports nausea and vomiting Genitourinary Genitourinary ED: Denies dysuria or hematuria Musculoskeletal Musculoskeletal: Reports back pain; Denies neck pain Integumentary Denies abscess or rash Neurologic Neurologic: Denies headache(s) or weakness Allergic/Immunologic Allergic/Immunologic ED: Denies mouth swelling or urticaria EXAM <Dr. Tanvir Renteria, DO - Last Filed: 02/27/25 15:19> Physical Exam Const Vital Signs: 02/27/25 12:58 02/27/25 15:14 Temperature 97.8 F Temperature Source Oral Pulse Rate 63 69 Respiratory Rate 20 H 18 Blood Pressure 137/95 H 126/67 H Blood Pressure Mean 109 86 Pulse Ox 100 100 Oxygen Delivery Method Room Air Room Air Positive well nourished and well developed Constitutional Narrative: BMI is 39.8. General Appearance ED: well developed and NAD HEENT Reports moist mucous membranes Neck supple and no JVD Resp normal respiratory effort and clear to auscultation bilaterally Cardio regular rate and regular rhythm GI non-tender and non-distended Palpation: soft Back/Spine General Back: CVA tenderness left Extremity normal to inspection Neuro oriented x3, CN's II-XII intact bilaterally and no sensory deficits noted Sensorium / Orientation: alert Motor Exam: strength 5/5 throughout Psych mental status grossly normal <Dr. Fermín Berumen MD - Last Filed: 02/27/25 16:09> Physical Exam Const Vital Signs: 02/27/25 12:58 02/27/25 15:14 Temperature 97.8 F Temperature Source Oral Pulse Rate 63 69 Respiratory Rate 20 H 18 Blood Pressure 137/95 H 126/67 H Blood Pressure Mean 109 86 Pulse Ox 100 100 Oxygen Delivery Method Room Air Room Air MDM <Dr. Tanvir Renteria, DO - Last Filed: 02/27/25 15:19> [facility] MDM Narrative Medical decision making narrative: Differential diagnosis includes ureteral calculus, pyelonephritis, electrolyte abnormality, ectopic , and dehydration. CT scan of the abdomen and pelvis will be obtained to assess for ureteral calculus and pyelonephritis. CBC will be obtained to assess for leukocytosis and anemia. Basic metabolic profile will be obtained to assess for electrolyte abnormality and renal function. Serum hCG will be obtained to assess for . Urinalysis will be obtained to assess for urinary tract infection and hematuria. Lab Data Attestation: I reviewed the patient's lab results. Lab results narrative: CBC was reviewed and was within normal limits. Basic metabolic profile was reviewed. Glucose was mildly elevated at 134. The remainder is within normal limits. Serum hCG was reviewed and was negative. Urinalysis was reviewed. Leukocyte esterase was 100. There are 0-5 white blood cells. There are 0-5 red blood cells. There are 5-10 epithelial cells. Labs: Laboratory Results - last 24 hr 02/27/25 02/27/25 13:35 13:50 WBC 10.5 RBC 5.00 Hgb 14.2 Hct 42.8 MCV 85.6 MCH 28.4 MCHC 33.2 RDW Std Deviation 37.8 RDW Coeff of Gene 12.2 Plt Count 216 MPV 9.2 Immature Gran % (Auto) 0.400 Neut % (Auto) 79.4 H Lymph % (Auto) 12.1 L [place] % (Auto) 7.0 Eos % (Auto) 0.7 Baso % (Auto) 0.4 Absolute Neuts (auto) 8.3 H Absolute Lymphs (auto) 1.27 Nucleated RBC % 0 Sodium 138 Potassium 3.4 Chloride 100 Carbon Dioxide 26.1 Anion Gap 11 BUN 12 Creatinine 0.80 Estim Creat Clear Calc 139.27 Est GFR (MDRD) Non-Af 102 BUN/Creatinine Ratio 15.5 Glucose 134 H Calcium 9.5 Serum , Qual NEGATIVE Urine Color Yellow Urine Clarity Clear Urine pH 6.5 Ur Specific [place] 1.015 Urine Protein 15 H Urine Glucose (UA) Normal Urine Ketones Negative Urine Occult Blood 50 H Urine Nitrite Negative Urine Bilirubin Negative Urine Urobilinogen Normal Ur Leukocyte Esterase 100 H Urine RBC 0-5 SEEN Urine WBC 0-5 SEEN Ur Squamous Epith Cells 5-10 SEEN Urine Bacteria RARE Urine Mucus 0 SEEN Radiography Diagnostic Testing: Clinical Impression(s) from Imaging Studies Abdomen/Pelvis CT 02/27/25 13:41 IMPRESSION: gallbladder contains large calcified gallstone. Mild thickening of the gallbladder wall; if there is concern for acute cholecystitis, consider RUQ US for further evaluation. No obstructive uropathy. No hydronephrosis. Recent passage of stone cannot be excluded. Reading Location: [facility] Treatment and Re-Evaluation :: Patient was given IV fluids, Toradol, and Zofran. <Dr. Fermín Berumen MD - Last Filed: 02/27/25 16:09> [facility] Lab Data Labs: Laboratory Results - last 24 hr 02/27/25 02/27/25 13:35 13:50 WBC 10.5 RBC 5.00 Hgb 14.2 Hct 42.8 MCV 85.6 MCH 28.4 MCHC 33.2 RDW Std Deviation 37.8 RDW Coeff of Gene 12.2 Plt Count 216 MPV 9.2 Immature Gran % (Auto) 0.400 Neut % (Auto) 79.4 H Lymph % (Auto) 12.1 L [place] % (Auto) 7.0 Eos % (Auto) 0.7 Baso % (Auto) 0.4 Absolute Neuts (auto) 8.3 H Absolute Lymphs (auto) 1.27 Nucleated RBC % 0 Sodium 138 Potassium 3.4 Chloride 100 Carbon Dioxide 26.1 Anion Gap 11 BUN 12 Creatinine 0.80 Estim Creat Clear Calc 139.27 Est GFR (MDRD) Non-Af 102 BUN/Creatinine Ratio 15.5 Glucose 134 H Calcium 9.5 Serum , Qual NEGATIVE Urine Color Yellow Urine Clarity Clear Urine pH 6.5 Ur Specific [place] 1.015 Urine Protein 15 H Urine Glucose (UA) Normal Urine Ketones Negative Urine Occult Blood 50 H Urine Nitrite Negative Urine Bilirubin Negative Urine Urobilinogen Normal Ur Leukocyte Esterase 100 H Urine RBC 0-5 SEEN Urine WBC 0-5 SEEN Ur Squamous Epith Cells 5-10 SEEN Urine Bacteria RARE Urine Mucus 0 SEEN Radiography Diagnostic Testing: Clinical Impression(s) from Imaging Studies Abdomen/Pelvis CT 02/27/25 13:41 IMPRESSION: gallbladder contains large calcified gallstone. Mild thickening of the gallbladder wall; if there is concern for acute cholecystitis, consider RUQ US for further evaluation. No obstructive uropathy. No hydronephrosis. Recent passage of stone cannot be excluded. Reading Location: [facility] Treatment and Re-Evaluation Comments:: Confirmed that her pain was on the left. Radiologist and I agree suspect that she had a stone that she passed. There is a stone noted in the right kidney and there is also evidence of cholelithiasis. She was aware of the cholelithiasis. Since she is pain-free will discharge to home with appropriate home-going instruction Discharge Plan Triage Chief Complaint: Flank Pain ED Provider: Tanvir Renteria Dx/Rx/DC Orders Clinical Impression: Acute left flank pain, Kidney stone on right side, Cholelithiasis Instructions: Gallstones Dc, ED Flank Pain with Uncertain Cause Prescriptions: No Action hydroxyzine HCl 25 mg tablet 25 mg PO QHS PRN (Reason: sleep) sertraline 100 mg tablet 100 mg PO QDAY naproxen 500 mg tablet 500 mg PO BID PRN Qty: 20 0RF Primary Care Provider: Ketan Estevez Referrals: Ketan Estevez MD [Primary Care Provider] - 1 Week Print Language: Yakut Disposition Disposition: Home, Self Care
--- NOTE | 2025-02-27 13:41 | CT_ITS ---
PROCEDURE: ABDOMEN/PELVIS WITHOUT CONT 02/27/2025 REASON FOR EXAM: LEFT FLANK PAIN TECHNIQUE: Procedure Code: [id number] Modality: CT Procedure: ABDOMEN/PELVIS WITHOUT CONT Noncontrast technique limits evaluation of the abdominal and pelvic viscera. Coronal and Sagittal reconstruction series were provided. One or more dose reduction techniques were used (e.g., Automated exposure control, adjustment of the mA and/or kV according to patient size, use of iterative reconstruction technique). RADIATION DOSE SUMMARY: DLP: 598 mGycm COMPARISON: 01/28/25 FINDINGS: Limited sections of the lung bases demonstrate no focal pulmonary mass or consolidations. Bibasilar subsegmental atelectasis. The liver, spleen, pancreas, and both adrenal glands demonstrate no acute findings. Hepatomegaly to 17.5 cm. The gallbladder contains large calcified gallstone. Mild thickening of the gallbladder wall; if there is concern for acute cholecystitis, consider RUQ US for further evaluation. The stomach is unremarkable. The small bowel loops are not dilated. The appendix is not clearly identified, although there are no secondary signs of appendicitis. No colonic obstruction. There is no free air or significant free fluid. Nonobstructive tiny stone within the right kidney. The left collecting system is unremarkable. No obstructive uropathy. No hydronephrosis. Recent passage of stone cannot be excluded. The urinary bladder is distended. The pelvic structures are intact. 3.5 x 3.0 cyst within the left ovary. No significant lymphadenopathy. The aorta and IVC demonstrate no acute findings. Visualized osseous structures demonstrate no acute abnormality. CT/Abdomen/Pelvis without Cont IMPRESSION: gallbladder contains large calcified gallstone. Mild thickening of the gallbla dder wall; if there is concern for acute cholecystitis, consider RUQ US for further evaluation. No obstructive uropathy. No hydronephrosis. Recent passage of stone cannot be excluded. Reading Location: [facility]
[2025-02-27] MEDS: 0.9% Normal Saline (1000mL) 1,000 ML 1000 ML IV (13:59)
[2025-02-27] MEDS: Ketorolac 30 MG/ML Syringe IV (13:59)
[2025-02-27 14:01] LABS: Mucous, Urine 0 SEEN /hpf (<or=2+)
[2025-02-27 14:02] LABS: Hematocrit 42.8 % (37-47); Hemoglobin 14.2 g/dL (12.0-15.0); Immature Granulocytes Count 0.040 X10^3/uL (0.0-0.0); Mean Corp Hgb Conc 33.2 g/dL (32-36); Mean Corpuscular Volume 85.6 fL (81-99); Mean Platelet Vol. 9.2 fl (6.2-12.0); NRBC Flagged by Analyzer 0 % (0-5); Platelet Count 216 K/mm3 (150-450); RBC Distribution Width CV 12.2 % (11.6-14.6); RBC Distribution Width SD 37.8 fl (35.1-43.9); Red Blood Count 5.00 M/mm3 (4.2-5.4); White Blood Count 10.5 K/mm3 (4.4-11.0)
[2025-02-27 14:12] LABS: Color, Urine Yellow (Yellow); Glucose, Dipstick Normal (Normal); Ketone-Dipstick Negative (Negative); Leukocyte Esterase-Dipstick 100 /ul (Negative); Nitrite-Dipstick Negative (Negative); Occult Blood-Urine 50 /ul (Negative); Protein-Dipstick 15 mg/dl (Negative); Specific Gravity, Urine 1.015 (1.002-1.030); Urine Bilirubin Dipstick Negative (Negative)
[2025-02-27 14:21] LABS: Internal QC Validated? YES +Cl - CLEAR BKGD; Pregnancy, Serum, hCG Quali. NEGATIVE Negative; Record Kit Lot#, Serum Preg. 947241
[2025-02-27 14:24] LABS: Anion Gap 11 (5-15); BUN 12 mg/dL (4-19); BUN/Creat Ratio 15.5 RATIO (10-20); Calcium,Total 9.5 mg/dL (7.6-11.0); Carbon Dioxide 26.1 mmol/L (21.0-32.0); Chloride 100 mmol/L (98-108); Estimated Creatinine Clearance 139.27 ml/min (50-250); Glucose 134 mg/dL (70-99); Potassium 3.4 mmol/L (3.3-5.1)
[2025-02-27 14:26] LABS: Red Blood Cells-Urine 0-5 SEEN /hpf (0-5); Squamous Epithelial Cells - UA 5-10 SEEN /hpf (5-10)
[2025-02-27 15:14] VITALS: BP 126/67; PULSE 69; RESP 18; O2SAT 100
[2025-02-27 16:18] VITALS: BP 122/77; PULSE 70; RESP 18; TEMP 36.1; O2SAT 100
== END 2025-02-27 16:18 | disposition home or self-care (01) ==
PROVIDERS: Emergency Provider Emergency Medicine; PCP Family Medicine; Visit Provider Emergency Medicine
DX: R10.9 Unspecified abdominal pain (principal); K80.20 Calculus of gallbladder without cholecystitis without obstruction; N20.0 Calculus of kidney
CPT/HCPCS: 74176; 80048; 81001; 84703; 85025; 96361; 96374; 96375; 99282; J2405

== ENCOUNTER → 2025-03-19 | Outpatient (CLI) | payer SELFPAY, OTHER ==
--- NOTE | 2025-03-19 14:03 | ECHOL_ITS ---
Reason For Study Reason For Study: MYOCARDITIS Procedure This was a limited 2D transthoracic echocardiogram. Myocardial strain analysis was performed in this exam to aid in the assessment of cardiac function. Exam performed in department. Left Ventricle Normal left ventricle. The global longitudinal strain = -20 % (normal). The left ventricular ejection fraction is 55 %. No regional wall motion abnormalities noted. Right Ventricle Normal RV size. Normal systolic function. Atria Normal left atrium. Normal right atrium. Mitral Valve Normal mitral valve. Tricuspid Valve Normal tricuspid valve. Mild tricuspid valve insufficiency. Pulmonary artery systolic pressure is 18 mmHg. Aortic Valve Trisinus/trileaflet aortic valve. Pulmonic Valve Normal pulmonic valve. Great Vessels Normal aortic root. The pulmonary artery is normal size. Inferior vena cava collapse with respiration. Pericardium/Pleural No pericardial effusion. MMode/2D Measurements & Calculations LVIDd: 4.7 cm IVSd: 0.83 cm LAV(MOD- bp): 36.1 ml LVIDs: 3.0 cm LVPWd: 1.0 cm LAV(MOD- bp) Indexed: 16.0 ml/m2 RVDd: 3.9 cm FS: 35.7 % LAV(MOD- sp2): 31.6 ml LAV(MOD- sp4): 37.5 ml SV(MOD- sp4): 45.3 ml LVAd ap4: 26.3 cm2 LVAd ap2: 26.2 cm2 LVLd ap4: 7.8 cm LVLd ap2: 8.1 cm SI(MOD- sp4): 20.0 ml/m2 EDV(MOD-sp4): 72.9 ml EDV(MOD-sp2): 69.6 ml EDV(sp4-el): 74.9 ml EDV(sp2-el): 72.0 ml LVAs ap4: 14.9 cm2 LVAs ap2: 14.3 cm2 LVLs ap4: 6.8 cm LVLs ap2: 6.3 cm ESV(MOD-sp4): 27.6 ml ESV(MOD-sp2): 27.8 ml ESV(sp4-el): 27.7 ml ESV(sp2-el): 27.5 ml EF(MOD-sp4): 62.1 % EF(MOD-sp2): 60.0 % EF(sp4-el): 63.0 % SV(MOD-sp2): 41.8 ml SV(sp4-el): 47.2 ml Ao sinus diam: 2.8 cm SI(MOD-sp2): 18.4 ml/m2 Ao ST Junction: 2.1 cm LA dimension(2D): 4.0 cm LA A4 area: 16.1 cm2 RA A4 area: 17.5 cm2 TAPSE: 1.9 cm Time Measurements MV dec time: 0.15 sec Doppler Measurements & Calculations MV E max jassi: 67.0 cm/sec Lat Peak E' Jassi: 13.8 cm/sec Med Peak E' Jassi: 10.1 cm/sec MV A max jassi: 66.3 cm/sec E/E' lat: 4.9 E/E' med: 6.6 MV E/A: 1.0 TR max jassi: 181.7 cm/sec MV dec slope: 435.1 cm/sec2 TR max P.2 mmHg ECHO/Echo, Limited Study Interpretation Summary Normal left ventricle. The global longitudinal strain = -20 % (normal). The left ventricular ejection fraction is 55 %. Pulmonary artery systolic pressure is 18 mmHg. Structurally normal valves. Ordering Physician: Nahun Julian Referring Physician: Ketan Estevez Performed By: Ruth Middleton RDCS
== END | disposition home or self-care (01) ==
PROVIDERS: PCP Family Medicine; Referring Provider Internal Medicine Cardiovascular Disease; Visit Provider Internal Medicine Cardiovascular Disease
DX: I51.4 Myocarditis, unspecified (principal)
CPT/HCPCS: 93308